=== PATIENT | female | born 1935 | race Caucasian/White ===

== ENCOUNTER 2017-08-24 14:41 | Inpatient (IN) | payer OTHER ==
[~2017-08-24] VITALS: Ht 165.1 cm; Wt 93.4 kg
--- NOTE | ~2017-08-24 | EKG ---
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: [facility] : 1935 Requested By: Atul Santos Order Number: [id number] MD: Bradley Rodriguez Measurements Intervals [place] Rate: 66 P: 65 [place]: 152 QRS: -23 QRSD: 103 T: 88 QT: 444 QTc: 466 Interpretive Statements Sinus rhythm Left ventricular hypertrophy Nonspecific T abnrm, anterolateral leads No previous ECG available for comparison Electronically Signed On 08-24-2017 17:36:33 CDT by Bradley Rodriguez [email or web address] <ELECTRONICALLY SIGNED> By: Bradley Rodriguez MD, [facility] 08/24/17 1736 D: 04/1502 150 Bradley Rodriguez MD, FACC /EPI
--- NOTE | ~2017-08-24 | 2DMMODE ---
[facility] [address] [place] [address] 2 D/M-MODE ECHOCARDIOGRAM Name: MARSELENAEnedeliaLORY Room #: 407-P ADM IN M.R.#: [id number] Admission: 08/24/17 Attend Phys: Yolanda Rossi Discharge: Date of : 35 Date of Service: 08/25/17 1042 Report #: [id number] THIS REPORT FOR: //name// APPROVED REPORT Study performed: 08/25/2017 09:29:29 EXAM: Comprehensive 2D, Doppler, and color-flow Echocardiogram Patient Location: Bedside Room #: 407 Status: routine BSA: 2.00 HR: 77 bpm BP: 156/76 mmHg Rhythm: NSR Other Information Study Quality: Fair Technically limited study due to no patient cooperation and obesity. Indications CVA. Hx: CVA, HTN, HLP, DM Echo Enhancing Agent Indication: Rule out Shunt Agent(s) / Amount(s) Used: Agitated Saline 6 cc 2D Dimensions LVEF(%): 69.09 (>50%) IVSd: 14.05 (7-11mm) LVOT Diam: 19.75 (18-24mm) LVDd: 48.02 mm PWd: 13.26 (7-11mm) LVDs: 29.38 (25-40mm) Aortic Root: 33.80 mm Riley's LVEF: 69.09 % Volumes Left Atrial Volume (Systole) Single Plane 4CH: 35.74 mL Aortic Valve AoV Peak Duc.: 2.32 m/s AO Peak Gr.: 21.56 mmHg LVOT Max P.97 mmHg AO Mean Gr.: 12.81 mmHg [facility] [email or web address] [address] 2 D/M-MODE ECHOCARDIOGRAM Name: ARLENELORY Room #: 407-P [facility] IN [facility]#: [id number] Admission: 08/24/17 Attend Phys: Yolanda Rossi Discharge: Date of : 35 Date of Service: 08/25/17 1042 Report #: [id number] AO V2 Mean: 1.72 m/s LVOT Max V: 1.41 m/s AO V2 VTI: 48.76 cm NIRMALA Vmax: 1.86 cm2 Mitral Valve E/A Ratio: 0.7 MV Decel. Time: 258.91 ms MV E Max Duc.: 0.81 m/s MV A Duc.: 1.14 m/s MV PHT: 75.08 ms IVRT: 69.20 ms Pulmonary Vein P Vein S: 0.75 m/s P Vein D: 0.46 m/s P Vein S/D Ratio: 1.63 Tricuspid Valve TR Peak Duc.: 2.57 m/s TR Peak Gr.: 26.48 mmHg Left Ventricle The left ventricle is normal size. Mild concentric left ventricular hypertrophy. Left ventricular systolic function is normal. LVEF is 60%. Mild diastolic dysfunction is present (impaired relaxation pattern). Right Ventricle The right ventricle is normal size. The right ventricular systolic function is normal. Atria The left atrium size is normal. No shunting noted by contrast bubble injection. The right atrium size is normal. Aortic Valve Aortic valve is calcified. Mild aortic regurgitation. There is mild valvular aortic stenosis. Calculated aortic valve area is 1.9 cm2 with maximum pressure gradient of 22 mmHg and mean pressure gradient of 13 mmHg. Mitral Valve The mitral valve is normal in structure. There is no mitral valve regurgitation noted. No evidence of mitral valve stenosis. Tricuspid Valve [facility] [address] [place] [address] 2 D/M-MODE ECHOCARDIOGRAM Name: LORY JACOBS Room #: 407-P [facility] IN M.R.#: [id number] Admission: 08/24/17 Attend Phys: Yolanda Rossi Discharge: Date of : 35 Date of Service: 08/25/17 1042 Report #: [id number] The tricuspid valve is normal in structure. Trace tricuspid regurgitation. Estimated PAP is 27mmHg plus the right atrial pressure. Pulmonic Valve Pulmonic valve is not well visualized. Great Vessels The aortic root is normal in size. Ascending aorta is not well visualized. IVC is not well visualized. Pericardium There is no pericardial effusion. <Conclusion> The left ventricle is normal size. LVEF is 60%. Aortic valve is calcified. Mild aortic regurgitation. There is mild valvular aortic stenosis. Calculated aortic valve area is 1.9 cm2 with maximum pressure gradient of 22 mmHg and mean pressure gradient of 13 mmHg. The mitral valve is normal in structure. The tricuspid valve is normal in structure. Trace tricuspid regurgitation. Estimated PAP is 27mmHg plus the right atrial pressure. Pulmonic valve is not well visualized. There is no pericardial effusion. No shunting noted by contrast bubble injection. <ELECTRONICALLY SIGNED> By: William Bowles MD 08/25/17 1042 104 104 William Bowles MD /INF
[2017-08-24 14:46] VITALS: BP 130/70
[2017-08-24 14:59] LABS: BASOPHILS 0.3 % (0.0-2.0); EOSINOPHILS 3.4 % (0.0-3.0); HEMATOCRIT 33.6 % (37.0-47.0); HEMOGLOBIN 11.2 gm/dL (12.0-15.0); LYMPHOCYTES 24.7 % (24.0-44.0); MCH 30.5 pg (26.0-34.0); MCHC 33.5 g/dL (28.0-37.0); MONOCYTES 5.4 % (1.0-8.0); PLATELET COUNT 292 thou/uL (150-400); POLYS 66.2 % (36.0-66.0); RBC 3.69 mil/uL (4.20-5.00); RDW 13.3 % (10.5-14.5); WBC 9.1 thou/uL (4.0-11.0)
[2017-08-24 15:06] LABS: ANION GAP 10 mmol/L (7-16); BUN 33 mg/dL (7-18); CALCIUM 9.8 mg/dL (8.5-10.1); CHLORIDE 104 mmol/L (98-107); CO2 26 mmol/L (21-32); CREATININE 1.3 mg/dL (0.6-1.0); GLUCOSE 159 mg/dL (74-106); POTASSIUM 4.5 mmol/L (3.5-5.1); SODIUM 140 mmol/L (136-145)
[2017-08-24 15:19] LABS: ALBUMIN 3.2 g/dL (3.4-5.0); SGOT 19 U/L (15-37); SGPT 22 U/L (30-65); TOTAL BILIRUBIN 0.3 mg/dL (<0.1-1.0); TROPONIN-I < 0.04 ng/mL (<0.06)
[2017-08-24 15:38] LABS: PROTIME 10.3 Seconds (9.3-11.4)
[2017-08-24 16:18] LABS: URINE BILIRUBIN NEGATIVE (Negative); URINE BLOOD 3+ (Negative); URINE CLARITY CLOUDY; URINE COLOR YELLOW; URINE GLUCOSE-RANDOM* NEGATIVE (Negative); URINE KETONES NEGATIVE (Negative); URINE LEUKOCYTES 3+ (Negative); URINE NITRITE POSITIVE (Negative); URINE PROTEIN (DIPSTICK) 1+ (Negative); URINE UROBILINOGEN 0.2 E.U./dl (0.2-1.0)
[2017-08-24 16:27] LABS: BACTERIA >30 Many /HPF (None Seen); CASTS None Seen /LPF (None Seen); CRYSTALS None Seen /LPF (None Seen); SQUAMOUS None Seen /LPF (0-3); URINE WBC >25 Many /HPF (0-5)
[2017-08-24 17:27] LABS: CHOLESTEROL 281 mg/dL (<200); HDL CHOLESTEROL 46 mg/dL (>40); TC:HDL 6.1 Ratio (Not establshd); TRIGLYCERIDE 410 mg/dL (<150); VLDL 82 mg/dL (<40)
[2017-08-24 17:36] LABS: SERUM ASSESSMENT Clear
[2017-08-24 17:55] LABS: TSH 4.051 uIU/mL (0.358-3.740)
[2017-08-24 18:10] VITALS: BP 108/49
[2017-08-24 18:14] VITALS: BP 165/55
[2017-08-24 21:24] VITALS: BP 160/75
[2017-08-25 04:00] VITALS: BP 194/72
[2017-08-25] MEDS ORDERED: CALCIUM 600 +1 EAC1 PO (04:16)
[2017-08-25] MEDS ORDERED: NORVASC5 MG PO (04:16)
[2017-08-25] MEDS ORDERED: PLAVIX 75 MG TA75 M1 PO (04:17)
[2017-08-25] MEDS ORDERED: LASIX 20 MG TAB20 MG PO (04:18)
[2017-08-25] MEDS ORDERED: SYNTHROID50 MCG PO (04:18)
[2017-08-25] MEDS ORDERED: LISINOPRIL20 MG PO (04:20)
[2017-08-25] MEDS ORDERED: ACCUNEB SO1.25 MG/1 INH (04:22)
[2017-08-25] MEDS ORDERED: CYCLOBENZAPRINE5 MG PO ×2 (04:23→04:24)
[2017-08-25] MEDS ORDERED: METFORMIN HCL500 MG PO (04:28)
[2017-08-25] MEDS ORDERED: DULERA 100 MCG/13 GM (04:29)
[2017-08-25] MEDS ORDERED: PEPCID20 MG PO (04:30)
[2017-08-25] MEDS ORDERED: I-VITE TABLET1 EACH PO (04:31)
[2017-08-25] MEDS ORDERED: NF (04:32)
[2017-08-25 04:35] VITALS: BP 176/86
[2017-08-25] MEDS ORDERED: TYLENOL325 MG PO (04:46)
[2017-08-25] MEDS ORDERED: ARTIFICIAL TEA1 EACH OP (04:55)
[2017-08-25 05:00] VITALS: BP 158/70
[2017-08-25] MEDS ORDERED: LOPERAMIDE2 MG PO (05:02)
[2017-08-25] MEDS ORDERED: MI ACID LIQUID355 ML PO (05:03)
[2017-08-25] MEDS ORDERED: MIRALAX17 GM PO (05:04)
[2017-08-25] MEDS ORDERED: MILK OF MA2400 MG/10 PO (05:04)
[2017-08-25] MEDS ORDERED: VENTOLIN HFA 1818 GM INH (05:05)
[2017-08-25] MEDS ORDERED: SENNA8.6 MG PO (05:05)
[2017-08-25 07:05] VITALS: BP 156/76
[2017-08-25 16:09] VITALS: BP 107/51
[2017-08-25 20:00] VITALS: BP 154/52
[2017-08-26 05:32] VITALS: BP 117/67
[2017-08-26 08:44] VITALS: BP 149/45
[2017-08-26 16:47] VITALS: BP 148/52
[2017-08-26 20:00] VITALS: BP 157/65
[2017-08-27 04:00] VITALS: BP 142/65
[2017-08-27] MEDS ORDERED: LIPITOR 20 MG T20 M1 PO (09:46)
[2017-08-27] MEDS ORDERED: CEFUROXIME500 MG PO (09:46)
[2017-08-27 10:40] VITALS: BP 132/67
== END 2017-08-27 12:45 | DRG 871 ==
LOC: ER 14:41 → EROBS 16:55 → 4N 16:55
PROVIDERS: Hospitalist; Physician Assistant
DX: A41.9 Sepsis, unspecified organism (principal); G93.41 Metabolic encephalopathy; N39.0 Urinary tract infection, site not specified; N17.9 Acute kidney failure, unspecified; B96.20 Unspecified Escherichia coli [E. coli] as the cause of diseases classified elsewhere; I10 Essential (primary) hypertension; E11.9 Type 2 diabetes mellitus without complications; L89.91 Pressure ulcer of unspecified site, stage 1; M17.12 Unilateral primary osteoarthritis, left knee; E78.00 Pure hypercholesterolemia, unspecified; F41.9 Anxiety disorder, unspecified; J45.909 Unspecified asthma, uncomplicated; Z86.73 Personal history of transient ischemic attack (TIA), and cerebral infarction without residual deficits; Z79.84 Long term (current) use of oral hypoglycemic drugs; Z79.51 Long term (current) use of inhaled steroids; Z79.899 Other long term (current) drug therapy
CPT/HCPCS: 10091

== ENCOUNTER 2017-09-11 15:08 | Inpatient (IN) | payer OTHER ==
[~2017-09-11] VITALS: Ht 160 cm; Wt 84.2 kg
--- NOTE | ~2017-09-11 | EKG ---
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: at : 1935 Requested By: Urbano Real Order Number: [id number] MD: Ozzie Ramirez Measurements Intervals [place] Rate: 73 P: 68 SC: 156 QRS: -17 QRSD: 100 T: 63 QT: 479 QTc: 528 Interpretive Statements Sinus rhythm Borderline left axis deviation Borderline T abnormalities, lateral leads Prolonged QT interval Compared to ECG 08/24/2017 15:03:06 T-wave abnormality now present Prolonged QT interval now present Left ventricular hypertrophy no longer present Electronically Signed On 09-11-2017 22:56:09 CDT by Ozzie Ramirez [email or web address] <ELECTRONICALLY SIGNED> By: Ozzie Ramirez MD 09/11/17 2256 170 170 Ozzie Ramirez MD /EPI
[~2017-09-11 15:08] MED LIST: ACCUNEB SO1.25 MG/1 INH; ARTIFICIAL TEA1 EACH OP; CALCIUM 600 +1 EAC1 PO; CEFUROXIME500 MG PO; CYCLOBENZAPRINE5 MG PO; DULERA 100 MCG/13 GM; I-VITE TABLET1 EACH PO; LASIX 20 MG TAB20 MG PO; LIPITOR 20 MG T20 M1 PO; LISINOPRIL20 MG PO; LOPERAMIDE2 MG PO; METFORMIN HCL500 MG PO; MI ACID LIQUID355 ML PO; MILK OF MA2400 MG/10 PO; MIRALAX17 GM PO; NF; NORVASC5 MG PO; PEPCID20 MG PO; PLAVIX 75 MG TA75 M1 PO; SENNA8.6 MG PO; SYNTHROID50 MCG PO; TYLENOL325 MG PO; VENTOLIN HFA 1818 GM INH
[2017-09-11 15:09] VITALS: BP 129/84
[2017-09-11 15:31] LABS: URINE BILIRUBIN NEGATIVE (Negative); URINE BLOOD TRACE (Negative); URINE CLARITY CLEAR; URINE COLOR YELLOW; URINE GLUCOSE-RANDOM* NEGATIVE (Negative); URINE KETONES NEGATIVE (Negative); URINE NITRITE-REFLEX NEGATIVE (Negative); URINE PROTEIN (DIPSTICK) NEGATIVE (Negative); URINE SPECIFIC GRAVITY <= 1.005 (1.005-1.035); URINE UROBILINOGEN 0.2 E.U./dl (0.2-1.0)
[2017-09-11 15:32] LABS: URINE LEUKOCYTES-REFLEX 1+ (Negative)
[2017-09-11 15:42] LABS: SQUAMOUS 4-10 Moderate /LPF (0-3); URINE RBC 0-2 Rare /HPF (0-2); URINE WBC-REFLEX 6-15 Few /HPF (0-5)
[2017-09-11 15:43] LABS: BACTERIA-REFLEX None Seen /HPF (None Seen); CRYSTALS None Seen /LPF (None Seen); HYALINE CASTS 4-10 Moderate /LPF (None Seen); YEAST-REFLEX Present (None Seen)
[2017-09-11 15:50] LABS: BE(vivo) -0.2 mmol/L (-2 to +3); HCO3 23.8 mmol/L (22.0-26.0); PCO2 36.9 mmHg (35.0-45.0); PO2 69.7 mmHg (80.0-100.0); pH 7.428 (7.360-7.450); sO2 94.5 % (92.0-98.0)
[2017-09-11 15:54] LABS: AMP/METHAMP Negative (Negative); BARBITURATES Negative (Negative); BENZODIAZEPINES Negative (Negative); COCAINE Negative (Negative); METHADONE Negative (Negative); OPIATES Negative (Negative); PCP Negative (Negative)
[2017-09-11 16:13] LABS: ANION GAP 12 mmol/L (7-16); BUN 19 mg/dL (7-18); CHLORIDE 102 mmol/L (98-107); CO2 21 mmol/L (21-32); GLUCOSE 178 mg/dL (74-106); POTASSIUM 4.3 mmol/L (3.5-5.1); SODIUM 135 mmol/L (136-145); TROPONIN-I < 0.04 ng/mL (<0.06)
[2017-09-11 16:45] LABS: ABSOLUTE NEUTROPHILS 8.1 thou/uL (1.4-8.2); BASOPHILS 0.4 % (0.0-2.0); EOSINOPHILS 1.4 % (0.0-3.0); HEMATOCRIT 32.4 % (37.0-47.0); HEMOGLOBIN 10.8 gm/dL (12.0-15.0); LYMPHOCYTES 19.5 % (24.0-44.0); MCH 30.2 pg (26.0-34.0); MCHC 33.2 g/dL (28.0-37.0); MCV 90.9 fL (80.0-100.0); MONOCYTES 6.9 % (1.0-8.0); PLATELET COUNT 403 thou/uL (150-400); POLYS 71.8 % (36.0-66.0); RBC 3.57 mil/uL (4.20-5.00); RDW 13.1 % (10.5-14.5); WBC 11.2 thou/uL (4.0-11.0)
[2017-09-11 19:12] VITALS: BP 133/55
[2017-09-11 19:39] VITALS: BP 127/51
[2017-09-11] MEDS ORDERED: LIORESAL 10 MG10 MG PO (19:54)
[2017-09-11 20:16] LABS: FOLIC ACID 9.4 ng/mL (8.6-58.9); TSH 2.154 uIU/mL (0.358-3.740)
[2017-09-11 20:50] VITALS: BP 116/77
[2017-09-12 00:05] VITALS: BP 130/69
[2017-09-12 04:01] VITALS: BP 113/68
[2017-09-12 04:16] LABS: HEMATOCRIT 29.9 % (37.0-47.0); MCH 30.1 pg (26.0-34.0); MCHC 33.5 g/dL (28.0-37.0); MCV 89.9 fL (80.0-100.0); RBC 3.33 mil/uL (4.20-5.00); RDW 13.2 % (10.5-14.5); WBC 10.4 thou/uL (4.0-11.0)
[2017-09-12 04:27] LABS: CALCIUM 9.4 mg/dL (8.5-10.1); CREATININE 0.9 mg/dL (0.6-1.0); MAGNESIUM 1.5 mg/dL (1.8-2.4); POTASSIUM 3.8 mmol/L (3.5-5.1)
[2017-09-12 07:12] VITALS: BP 114/62
[2017-09-12 19:40] VITALS: BP 126/71
[2017-09-13 04:09] VITALS: BP 125/63
[2017-09-13 05:25] LABS: HEMATOCRIT 30.1 % (37.0-47.0); HEMOGLOBIN 10.1 gm/dL (12.0-15.0); MCH 30.5 pg (26.0-34.0); MCHC 33.5 g/dL (28.0-37.0); RBC 3.31 mil/uL (4.20-5.00); RDW 12.9 % (10.5-14.5); WBC 9.9 thou/uL (4.0-11.0)
[2017-09-13 05:33] LABS: CALCIUM 9.3 mg/dL (8.5-10.1); CREATININE 0.8 mg/dL (0.6-1.0); MAGNESIUM 1.7 mg/dL (1.8-2.4); POTASSIUM 3.8 mmol/L (3.5-5.1)
[2017-09-13 07:45] VITALS: BP 102/57
[2017-09-13 19:25] VITALS: BP 121/61
[2017-09-14 05:47] VITALS: BP 122/66
[2017-09-14 05:49] LABS: CALCIUM 9.4 mg/dL (8.5-10.1); CREATININE 0.7 mg/dL (0.6-1.0); MAGNESIUM 1.6 mg/dL (1.8-2.4); POTASSIUM 3.6 mmol/L (3.5-5.1)
[2017-09-14 05:57] LABS: HEMATOCRIT 28.8 % (37.0-47.0); HEMOGLOBIN 9.8 gm/dL (12.0-15.0); MCH 30.1 pg (26.0-34.0); MCHC 33.8 g/dL (28.0-37.0); RBC 3.24 mil/uL (4.20-5.00); RDW 12.9 % (10.5-14.5); WBC 10.9 thou/uL (4.0-11.0)
[2017-09-14 09:30] VITALS: BP 158/66
[2017-09-14 11:44] VITALS: BP 136/70
[2017-09-14 15:33] LABS: APTT 35.8 Seconds (24.5-32.8); FIBRINOGEN 545.2 mg/dL (210-360); INR 1.1; PROTIME 11.7 Seconds (9.3-11.4)
[2017-09-14 16:05] VITALS: BP 158/66
[2017-09-14 19:16] VITALS: BP 124/71
[2017-09-15 03:45] VITALS: BP 105/64
[2017-09-15 06:26] LABS: CALCIUM 9.9 mg/dL (8.5-10.1); CREATININE 0.8 mg/dL (0.6-1.0); MAGNESIUM 1.7 mg/dL (1.8-2.4); POTASSIUM 3.5 mmol/L (3.5-5.1)
[2017-09-15 07:27] LABS: HEMATOCRIT 25.7 % (37.0-47.0); HEMOGLOBIN 8.8 gm/dL (12.0-15.0); MCH 30.4 pg (26.0-34.0); MCHC 34.2 g/dL (28.0-37.0); MCV 88.8 fL (80.0-100.0); RBC 2.89 mil/uL (4.20-5.00); RDW 13.2 % (10.5-14.5); WBC 7.5 thou/uL (4.0-11.0)
[2017-09-15 09:00] VITALS: BP 102/77
[2017-09-15 15:41] VITALS: BP 119/66
[2017-09-15 19:15] VITALS: BP 167/54
[2017-09-16 04:50] VITALS: BP 146/50
[2017-09-16 08:25] VITALS: BP 120/72
[2017-09-16 19:23] VITALS: BP 117/57
[2017-09-17 05:55] VITALS: BP 170/50
[2017-09-17 17:11] VITALS: BP 124/70
[2017-09-17 20:22] VITALS: BP 161/58
[2017-09-18 03:43] VITALS: BP 155/6
[2017-09-18 05:32] LABS: HEMATOCRIT 26.6 % (37.0-47.0); MCH 30.2 pg (26.0-34.0); MCV 88.9 fL (80.0-100.0); RBC 2.99 mil/uL (4.20-5.00); RDW 13.4 % (10.5-14.5); WBC 8.7 thou/uL (4.0-11.0)
[2017-09-18 05:42] LABS: CALCIUM 9.6 mg/dL (8.5-10.1); CREATININE 0.6 mg/dL (0.6-1.0); POTASSIUM 3.9 mmol/L (3.5-5.1)
[2017-09-18 07:36] VITALS: BP 153/61
[2017-09-18] MEDS ORDERED: CEFDINIR300 MG PO (09:00)
[2017-09-18] MEDS ORDERED: NOVOLOG100 UNIT/1 SUBQ (09:02)
[2017-09-18] MEDS ORDERED: DIFLUCAN200 MG PO (09:03)
[2017-09-18 11:10] LABS: ALBUMIN 2.2 g/dL (3.4-5.0); MAGNESIUM 1.5 mg/dL (1.8-2.4)
== END 2017-09-18 12:04 | DRG 689 ==
LOC: ER 15:08 → 4E 17:13 → EROBS 17:13 → 4E 19:39
PROVIDERS: Emergency Medicine; Hospitalist; Internal Medicine; Internal Medicine Geriatric Medicine; Psychiatry & Neurology Neurology
DX: N39.0 Urinary tract infection, site not specified (principal); G93.40 Encephalopathy, unspecified; I69.351 Hemiplegia and hemiparesis following cerebral infarction affecting right dominant side; E03.9 Hypothyroidism, unspecified; E11.9 Type 2 diabetes mellitus without complications; F41.9 Anxiety disorder, unspecified; J45.909 Unspecified asthma, uncomplicated; T42.8X5A Adverse effect of antiparkinsonism drugs and other central muscle-tone depressants, initial encounter; Y92.89 Other specified places as the place of occurrence of the external cause; Z79.84 Long term (current) use of oral hypoglycemic drugs; Z79.899 Other long term (current) drug therapy; Z91.011 Allergy to milk products
CPT/HCPCS: 10084

== ENCOUNTER 2017-10-13 03:23 | Inpatient (IN) | payer OTHER ==
[~2017-10-13] VITALS: Ht 165.1 cm; Wt 83.9 kg
[~2017-10-13 03:23] MED LIST changes: +CEFDINIR300 MG PO; +DIFLUCAN200 MG PO; +LIORESAL 10 MG10 MG PO; +NOVOLOG100 UNIT/1 SUBQ
[2017-10-13 03:24] VITALS: BP 101/54
[2017-10-13] MEDS ORDERED: FLORANEX TABLE1 EACH PO (04:15)
[2017-10-13] MEDS ORDERED: I-VITE TABLET1 EACH PO (04:18)
[2017-10-13 04:20] LABS: HEMATOCRIT 31.7 % (37.0-47.0); HEMOGLOBIN 10.5 gm/dL (12.0-15.0); MCH 28.9 pg (26.0-34.0); MCHC 33.3 g/dL (28.0-37.0); PLATELET COUNT 522 thou/uL (150-400); RBC 3.64 mil/uL (4.20-5.00); RDW 15.7 % (10.5-14.5); WBC 9.9 thou/uL (4.0-11.0)
[2017-10-13 04:21] LABS: URINE BLOOD NEGATIVE (Negative); URINE CLARITY CLOUDY; URINE COLOR BROWN; URINE GLUCOSE-RANDOM* NEGATIVE (Negative); URINE KETONES TRACE (Negative); URINE PROTEIN (DIPSTICK) 1+ (Negative); URINE SPECIFIC GRAVITY >= 1.030 (1.005-1.035); URINE UROBILINOGEN 0.2 E.U./dl (0.2-1.0)
[2017-10-13 04:23] LABS: ICTOTEST (BILI CONFIRMATORY) Negative (Negative); URINE BILIRUBIN NEGATIVE (Negative); URINE LEUKOCYTES-REFLEX 3+ (Negative); URINE NITRITE-REFLEX POSITIVE (Negative)
[2017-10-13 04:30] LABS: CALCIUM OXALATE 4-10 Moderate /LPF (None Seen); CASTS None Seen /LPF (None Seen); MUCUS 0-3 Light strn/LPF (None Seen); SQUAMOUS None Seen /LPF (0-3); TRANSITIONAL EPITHEL CELL 4-10 Moderate /LPF (None Seen); URINE WBC-REFLEX >25 Many /HPF (0-5); YEAST-REFLEX Present (None Seen)
[2017-10-13 04:31] LABS: BACTERIA-REFLEX >30 Many /HPF (None Seen); CRYSTALS None Seen /LPF (None Seen); URINE RBC 0-2 Rare /HPF (0-2)
[2017-10-13 04:32] LABS: CALCIUM 10.1 mg/dL (8.5-10.1)
[2017-10-13 04:37] LABS: ALBUMIN 2.2 g/dL (3.4-5.0); DIRECT BILIRUBIN 0.1 mg/dL (<0.1-0.3); MAGNESIUM 1.8 mg/dL (1.8-2.4); TOTAL BILIRUBIN 0.5 mg/dL (<0.1-1.0); TOTAL PROTEIN 7.4 g/dL (6.4-8.2)
[2017-10-13 04:54] VITALS: BP 101/54
[2017-10-13 04:54] LABS: ABSOLUTE NEUTROPHILS 5.3 thou/uL (1.4-8.2); LARGE PLATELETS OCCASIONAL; NUCLEATED RBCS 1 /100WBC; PROMYELOCYTES 1 %
[2017-10-13 08:11] VITALS: BP 142/40
[2017-10-13 17:43] VITALS: BP 116/62
[2017-10-13 20:00] VITALS: BP 124/41
[2017-10-14 04:30] VITALS: BP 127/47
[2017-10-14 04:40] LABS: CALCIUM 9.3 mg/dL (8.5-10.1); CREATININE 2.4 mg/dL (0.6-1.0)
[2017-10-14 07:05] VITALS: BP 145/51
[2017-10-14 11:25] LABS: HEMATOCRIT 27.6 % (37.0-47.0); HEMOGLOBIN 9.3 gm/dL (12.0-15.0); MCH 29.3 pg (26.0-34.0); MCHC 33.9 g/dL (28.0-37.0); MCV 86.6 fL (80.0-100.0); RBC 3.19 mil/uL (4.20-5.00); RDW 15.4 % (10.5-14.5); WBC 6.9 thou/uL (4.0-11.0)
[2017-10-14 16:10] VITALS: BP 151/65
[2017-10-14 20:44] VITALS: BP 145/57
[2017-10-15 04:44] VITALS: BP 135/53
[2017-10-15 05:04] LABS: HEMATOCRIT 26.3 % (37.0-47.0); HEMOGLOBIN 8.7 gm/dL (12.0-15.0); MCH 28.7 pg (26.0-34.0); MCHC 33.1 g/dL (28.0-37.0); MCV 86.7 fL (80.0-100.0); RBC 3.03 mil/uL (4.20-5.00); RDW 15.6 % (10.5-14.5); WBC 7.1 thou/uL (4.0-11.0)
[2017-10-15 05:24] LABS: CALCIUM 9.1 mg/dL (8.5-10.1); POTASSIUM 4.1 mmol/L (3.5-5.1); TOTAL BILIRUBIN 0.3 mg/dL (<0.1-1.0); TOTAL PROTEIN 6.1 g/dL (6.4-8.2)
[2017-10-15 09:03] VITALS: BP 130/57
[2017-10-15 17:49] VITALS: BP 145/79
[2017-10-15 20:00] VITALS: BP 164/67
[2017-10-16 04:32] VITALS: BP 170/56
[2017-10-16 05:16] LABS: HEMATOCRIT 26.2 % (37.0-47.0); HEMOGLOBIN 8.6 gm/dL (12.0-15.0); MCH 28.7 pg (26.0-34.0); MCV 86.9 fL (80.0-100.0); RBC 3.01 mil/uL (4.20-5.00); RDW 15.6 % (10.5-14.5); WBC 7.9 thou/uL (4.0-11.0)
[2017-10-16 05:27] LABS: CALCIUM 8.6 mg/dL (8.5-10.1); CREATININE 1.7 mg/dL (0.6-1.0); POTASSIUM 4.3 mmol/L (3.5-5.1)
[2017-10-16 08:00] VITALS: BP 170/60
[2017-10-16 13:23] VITALS: BP 165/63
[2017-10-16 17:31] VITALS: BP 152/52
[2017-10-16 20:00] VITALS: BP 166/56
[2017-10-17 04:30] VITALS: BP 152/52
[2017-10-17 05:27] LABS: CALCIUM 8.5 mg/dL (8.5-10.1); CREATININE 1.5 mg/dL (0.6-1.0)
[2017-10-17 05:28] LABS: HEMATOCRIT 24.2 % (37.0-47.0); HEMOGLOBIN 7.9 gm/dL (12.0-15.0); MCH 28.2 pg (26.0-34.0); MCHC 32.5 g/dL (28.0-37.0); MCV 86.9 fL (80.0-100.0); RBC 2.78 mil/uL (4.20-5.00); RDW 15.9 % (10.5-14.5)
[2017-10-17 15:00] VITALS: BP 156/62
[2017-10-17 19:40] VITALS: BP 157/55
[2017-10-18 04:33] VITALS: BP 175/74
[2017-10-18 07:15] VITALS: BP 164/72
[2017-10-18 08:38] LABS: CALCIUM 9.5 mg/dL (8.5-10.1); CREATININE 1.2 mg/dL (0.6-1.0); POTASSIUM 3.5 mmol/L (3.5-5.1)
[2017-10-18] MEDS ORDERED: VANCOMYCIN HCL10 GM PO (14:29)
[2017-10-18 16:40] VITALS: BP 174/98
== END 2017-10-18 18:45 | DRG 682 ==
LOC: ER 03:23 → EROBS 04:46 → 4E 04:46
PROVIDERS: Emergency Medicine; Hospitalist; Nurse Practitioner Family
DX: N17.9 Acute kidney failure, unspecified (principal); E43 Unspecified severe protein-calorie malnutrition; N39.0 Urinary tract infection, site not specified; I69.351 Hemiplegia and hemiparesis following cerebral infarction affecting right dominant side; E11.9 Type 2 diabetes mellitus without complications; F41.9 Anxiety disorder, unspecified; J45.909 Unspecified asthma, uncomplicated; I10 Essential (primary) hypertension; E78.5 Hyperlipidemia, unspecified; E03.9 Hypothyroidism, unspecified; N31.9 Neuromuscular dysfunction of bladder, unspecified; E86.0 Dehydration; B96.89 Other specified bacterial agents as the cause of diseases classified elsewhere; Z79.4 Long term (current) use of insulin; Z79.899 Other long term (current) drug therapy; Z91.011 Allergy to milk products; Z68.30 Body mass index [BMI] 30.0-30.9, adult
CPT/HCPCS: 10183

== ENCOUNTER 2019-04-12 10:12 | Inpatient (IN) | payer MEDICARE, OTHER ==
[~2019-04-12] VITALS: Ht 165.1 cm; Wt 63.5 kg
[~2019-04-12 10:12] MED LIST changes: +FLORANEX TABLE1 EACH PO; +VANCOMYCIN HCL10 GM PO
[2019-04-12] MEDS ORDERED: DUREZOL5 ML OPHTHALMIC (10:16)
[2019-04-12] MEDS ORDERED: ILEVRO1.7 ML OPHTHALMIC (10:18)
[2019-04-12] MEDS ORDERED: LASIX 40 MG TAB40 MG PO (10:19)
[2019-04-12] MEDS ORDERED: IPRAT-ALBUT 0.5-3 ML INH (10:20)
[2019-04-12] MEDS ORDERED: JANUVIA50 MG PO (10:21)
[2019-04-12 10:22] VITALS: BP 159/72
[2019-04-12] MEDS ORDERED: NYSTATIN1 EA10 TOP (10:22)
[2019-04-12] MEDS ORDERED: CLONIDINE HCL0.2 M2 PO (10:23)
[2019-04-12] MEDS ORDERED: MELATONIN5 MG SUBLING (10:25)
[2019-04-12 10:37] LABS: ABSOLUTE NEUTROPHILS 5.8 thou/uL (1.4-8.2); BASOPHILS 0.4 % (0.0-2.0); EOSINOPHILS 2.8 % (0.0-3.0); HEMOGLOBIN 11.2 gm/dL (12.0-15.0); LYMPHOCYTES 28.2 % (24.0-44.0); MCHC 33.1 g/dL (28.0-37.0); MCV 87.6 fL (80.0-100.0); MONOCYTES 5.6 % (1.0-8.0); PLATELET COUNT 303 thou/uL (150-400); RBC 3.88 mil/uL (4.20-5.00); RDW 14.7 % (10.5-14.5); WBC 9.2 thou/uL (4.0-11.0)
[2019-04-12 10:54] LABS: ANION GAP 6 mmol/L (7-16); BUN 18 mg/dL (7-18); CALCIUM 9.7 mg/dL (8.5-10.1); CHLORIDE 102 mmol/L (98-107); CO2 30 mmol/L (21-32); CREATININE 1.2 mg/dL (0.6-1.0); GLUCOSE 218 mg/dL (74-106); POTASSIUM 3.6 mmol/L (3.5-5.1); SODIUM 138 mmol/L (136-145)
[2019-04-12 11:05] LABS: SGOT 18 U/L (15-37); SGPT 32 U/L (30-65); TOTAL BILIRUBIN 0.4 mg/dL (<0.1-1.0); TOTAL PROTEIN 8.2 g/dL (6.4-8.2); TROPONIN-I <0.06 ng/mL (<0.06)
--- NOTE | 2019-04-12 13:10 | EKG ---
[address] [address] ELECTROCARDIOGRAM REPORT Name: CHARLY JACOBS Room #: 170-2 ADM IN M.R.#: [id number] Admission: 04/12/19 Attend Phys: Angel Luis Meyers MD Discharge: Date of : 35 Report #: [id number] THIS REPORT FOR: //name// 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: SHARONA : 1935 Requested By: Khadijah Hdz Order Number: [id number] MD: Ozzie Ramirez Measurements Intervals [place] Rate: 79 P: 57 [place]: 134 QRS: -14 QRSD: 91 T: 134 QT: 450 QTc: 517 Interpretive Statements Sinus rhythm LVH by voltage Nonspecific T abnrm, anterolateral leads Baseline wander in lead(s) V3 Compared to ECG 09/11/2017 17:01:55 Left ventricular hypertrophy now present T-wave abnormality no longer present Electronically Signed On 04-12-2019 13:10:38 [employer]PER[employer] by Ozzie Ramirez [email or web address] <ELECTRONICALLY SIGNED> By: Ozzie Ramirez MD 04/12/19 1310 1019 1019 Ozzie Ramirez MD /EPI
[2019-04-12 13:30] VITALS: BP 151/51
[2019-04-12 13:57] VITALS: BP 146/65
[2019-04-12 14:07] VITALS: BP 145/78
[2019-04-12 19:48] VITALS: BP 138/65
--- NOTE | 2019-04-12 20:41 | NUR ---
84 YEAR OLD FEMALE ARRIVES VIA CART TO UNIT AT APPROX 1430 FROM ER-REPORTED TO HAVE ARRIVED TO ER FROM INTERMEDIATE FACILITY-[facility] WITH RESPIRATORY DISTRESS-INCREASED WHEEZING AND DECREASING O2 SATS OVER COURSE OF PAST WEEK REPORTED WITH NO RESPONSE TO BREATHING TREATMENTS AT SNF. SPEAKS FARSI ONLY SO INTERPRETOR CALLED FOR ADMIT INTERVIEW-ORINETED TO PERSON AND SITUATION-DENIES C/O PAIN AND REPORTS BREATHING "GOOD NOW" NO SKIN BREAKSOWN NOTED ON EXAM-IS NOTED TO HAVE SIGNIFICANT RIGHT SIDED WEAKNESS AND REQUIRES ASSIST OF 2 TO TRANSFER TO/FROM BED TO /COMMODE. ORIENTED TO ROOM AND UNIT VIA INTERPRETOR-ADMIT PAPERWORK SIGNED-PERIPHERAL IV IN RIGHT HAND PATENT AND NS AT 75 EE PER HOUR STARTED AT APPROX 1545
--- NOTE | 2019-04-13 03:59 | NUR ---
Pt. rested quietly at intervals during the night when checked on during frequent rounds. Incontinent of urine and milady care given. Son at the bedside during bedside report and he assisted with assessment as pt. is not pashto speaking. She denies pain. Can become wheezy at times, but respiratory distress noted. On RT treatments and room air. Bed alarm is on.
[2019-04-13 05:45] LABS: ABSOLUTE NEUTROPHILS 6.7 thou/uL (1.4-8.2); BASOPHILS 0.3 % (0.0-2.0); EOSINOPHILS 0.2 % (0.0-3.0); HEMATOCRIT 33.5 % (37.0-47.0); HEMOGLOBIN 11.1 gm/dL (12.0-15.0); LYMPHOCYTES 15.9 % (24.0-44.0); MCH 29.1 pg (26.0-34.0); MCHC 33.1 g/dL (28.0-37.0); MCV 88.1 fL (80.0-100.0); MONOCYTES 0.6 % (1.0-8.0); PLATELET COUNT 305 thou/uL (150-400); RDW 15.1 % (10.5-14.5)
[2019-04-13 05:55] LABS: CALCIUM 9.3 mg/dL (8.5-10.1); CREATININE 1.3 mg/dL (0.6-1.0); MAGNESIUM 1.7 mg/dL (1.8-2.4); POTASSIUM 4.2 mmol/L (3.5-5.1)
[2019-04-13 08:15] VITALS: BP 151/76
[2019-04-13 12:18] VITALS: BP 142/70
[2019-04-13 19:32] VITALS: BP 170/76
--- NOTE | 2019-04-13 20:01 | NUR ---
Assumed pt care this am, NM lung scan VQ completed this am. POC followed pt is still incontinent. Speaks Farci only but is able to follow sign language and simple directions. Blood sugar checks done and insulin given. No signs or verbaizations of distress noted. Incontinent of urine, external emanuel in place. Endorsed to the night nurse.
--- NOTE | 2019-04-14 04:28 | NUR ---
Pt. rested quietly at intervals during the night when checked on during frequent rounds. External emanuel catheter in place as pt. is incontinent. Wheezes in both lung benjamin and RT treatments administered as ordered. No respiratory distress present and pt. is on room air. Head of the bed elevated. Bed alarm is on.
[2019-04-14 04:38] LABS: CREATININE 1.3 mg/dL (0.6-1.0); POTASSIUM 4.5 mmol/L (3.5-5.1)
[2019-04-14 04:56] LABS: HEMATOCRIT 30.8 % (37.0-47.0); HEMOGLOBIN 10.2 gm/dL (12.0-15.0); MCH 29.2 pg (26.0-34.0); MCV 88.6 fL (80.0-100.0); RBC 3.48 mil/uL (4.20-5.00); RDW 14.7 % (10.5-14.5); WBC 8.1 thou/uL (4.0-11.0)
[2019-04-14 08:00] VITALS: BP 168/70
--- NOTE | 2019-04-14 09:40 | NUR ---
PT SPEAKS FARSI/LITHUANIAN AND DOES NOT UNDERSTAND AUSTRIAN. PT'S SON STATED TO CALL HIM FOR ANY TRANSLATION NEEDS. PT STATED TO SON THAT SHE WAS HAVING ABD PAIN ABOVE THE UMBILICAL WHERE SHE HAS A HERNIA. PT WAS GIVEN PRN PO PAIN MEDICATION ORDERED. FREQUENT ROUNDING ON PT. WILL ATTEMPT TO USE RETAIL TRAINING MANAGER LINE FOR COMMUNICATION WELL.
[2019-04-14 15:00] VITALS: BP 151/65
--- NOTE | 2019-04-14 18:49 | NUR ---
Patient has called out appropriately this afternoon. She is able to communicate needs without voicing them. She points to water for a refill. She hands nurse call light and points at tv. Patient is progressing towards plan of care.
[2019-04-14 19:27] VITALS: BP 151/61
--- NOTE | 2019-04-15 03:28 | NUR ---
PT CARE ASSUMED AT 1900 WITH PT IN BED.PT IS NON GHANAIAN SPEAKING.PT IV GOT INFILTRATED AND WAS D/C .CHASITY TREJO CALLED AND OK WITH IV D/C AND FPR STEROID TO BE CHANGED TO PO SINCE PER PLAN PT IS TO GO BACK TO SNF.SON CAME TO VISIT AND FOLLOW UP PT CARE WITH STAFF.PT HAS AN EXTERNAL FEMALE CATHETER IN PLACE.PT HAD A LARGE BM TODAY .WILL CONTINUE POC TILL SHIFT ENDING
[2019-04-15 07:26] VITALS: BP 155/64
--- NOTE | 2019-04-15 12:22 | NUR ---
RECEIVED P.T. ORDERS. CHART REVIEWED. NO SKILLED P.T. INITIATED Pt IS CURRENTLY AT HER BASELINE PER HER SON AND HER SON DOESN'T WANT HER TO HAVE ANY P.T. HERE. ABBY AND RENEG AWARE.
[2019-04-15] MEDS ORDERED: MUCINEX600 MG PO (13:44)
[2019-04-15] MEDS ORDERED: NORVASC10 MG PO (13:44)
[2019-04-15] MEDS ORDERED: PREDNISONE 10 M10 M1 PO (13:45)
--- NOTE | 2019-04-15 13:53 | NUR ---
RECEIVED OT ORDER AND CHART REVIEWED. SPOKE WITH PATIENT'S SON WHO DECLINED ACUTE CARE OT HE WOULD HAVE TO BE PRESENT, RN AWARE.
--- NOTE | 2019-04-15 14:35 | NUR ---
DISCHARGE ORDERS COMPLETED PER ATTENDING. PATIENT DISCHARGING BACK TO [facility]. CHART COPY COMPLETED PER HUMAN RESOURCE INTERNSHIP. [facility] LIAISON NOTIFIED AND TO ARRANGE STRETCHER VAN TRANSPORT PER SONS REQUEST. PER UNIT RN SON REFUSES TO ALLOW PT AND OT TO WORK WITH PATIENT AND REFUSES TO ALLOW NURSING STAFF TO SIT PATIENT UP IN CHAIR. DISCHARGE ORDERS FAXED TO [facility], VERIFIED RECEIVED. UNIT RN NOTIFIED AND CONTACT NUMBER FOR REPORT PROVIDED. UNIT SW AWARE.
--- NOTE | 2019-04-15 14:56 | NUR ---
PT ADMITTED RELATED TO RESP DISTRESS. CM REVIEWED CHART AND SPOKE WITH CARE TEAM. CM MET WITH PT AND SON RAVI AT BEDSIDE THIS DAY. PT SPEAKS FARSI AND ANSWERED ALL HER ASSESSMENT QUESTIONS. HE INDICATED THAT PT RESIDES IN [facility]. 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 SON INDICATED THAT HE VISITS TWICE DAILY TO SEE PT. CARE TEAM INDIATED THAT PT IS MEDICALLY STABLE TO RETURN TO OP [facility]ENTER THIS DAY. CHART COPY ORDERED. CM TO NOTIFY SON ONCE TRANSPORT IS ARRANGED.
--- NOTE | 2019-04-15 16:07 | NUR ---
TRANSPORT WAS ARRANGED FOR 5:30-6:00 CM CALLED TO NOTIFY SON AND HE INDICATED THAT TOBIAS HARDIN WAS GOING TO DO A THYROID BIOPSY AND THAT DC NEEDED TO BE CANCLED. CM NOTIFIED OP CENTER LIAISON. CM TO FOLLOW INDICATED WITH DC PLANNING.
[2019-04-15 19:06] VITALS: BP 150/62
--- NOTE | 2019-04-15 19:54 | NUR ---
Assumed pt care this am, No IV in place , ws DC as per night nurse by PRESS CLIPPER since DC was anticipated. POC followed no signs or verbalizations of distress have been noted. Son was at the bed side in the pm. DC orders were given but taken back when Dr. Villegas visited the pt and plans are the do a biopsy of the thyroid. Ext. fc placed and draining well. IV placed by the IV team .POC followed no signs or verbalizations of distress have been noted.
--- NOTE | 2019-04-16 06:20 | NUR ---
Assumed pt care @1915. no concerns overnight. pt had a large BM at the start of the shift. female ext cath in place and patent. denies pain. v/s stable. no s/s of distress
[2019-04-16 08:00] VITALS: BP 165/76
[2019-04-16 15:00] VITALS: BP 153/65
--- NOTE | 2019-04-16 18:58 | NUR ---
REPORT GIVEN TO THIS RN BY NURSE GARCIA AT 1515HOURS. PATIENT IN BED WITH NO CONCERN VOICED. LUNGS DIMINISHED IN ALL LOBE PER AUSCULTATION. BS+X4, ABD SOFT NONE-TENDER TO TOUCH. PATIENT HAS RIGHT SIDED WEAKNES DUE TO CVA. BLOOD SUGAR BEFORE SUPPER WITH RESULT OF 241, INSULIN GIVEN PER ORDER. PATIENT IS ABLE TO FEED SELF, APPETITE GOOD, CONSUMED 100% SUPPER. EXTERNAL CATHERTER IN PLACE. PATIENT TAKEN TO RADIOLOGY FOR THYROID ULTRASOUND, HAS SINCE RETURNED. NO SIGN OF ACUTE RESPIRATORY DISTRESS NOTED AT THIS TIME, WILL CONTINUE TO MONITOR.
[2019-04-16 19:25] VITALS: BP 140/54
[2019-04-17 01:10] LABS: GLYCOHEMOGLOBIN (HGB A1C) 7.5 % (4.8-5.6)
--- NOTE | 2019-04-17 05:07 | NUR ---
Pt. rested quietly at intervals during the night when checked on during frequent rounds. Her previous iv site infiltrated when flushed. New iv restarted (see poc) without difficulty. No shortness of air and head of the bed elevated. External emanuel catheter in place. Bed alarm is on.
[2019-04-17 06:00] LABS: HEMOGLOBIN 11.2 gm/dL (12.0-15.0); MCH 29.2 pg (26.0-34.0); MCV 88.4 fL (80.0-100.0); RBC 3.84 mil/uL (4.20-5.00); RDW 14.9 % (10.5-14.5)
[2019-04-17 06:13] LABS: CALCIUM 8.9 mg/dL (8.5-10.1); CREATININE 1.3 mg/dL (0.6-1.0); POTASSIUM 4.6 mmol/L (3.5-5.1)
[2019-04-17 07:21] VITALS: BP 174/68
[2019-04-17 08:07] LABS: ADENOVIRUS Negative (Negative); INFLUENZA A Negative (Negative); INFLUENZA B Negative (Negative); METAPNEUMOVIRUS Negative (Negative); PARAINFLUENZA 1 Negative (Negative); PARAINFLUENZA 2 Negative (Negative); PARAINFLUENZA 3 Negative (Negative); RHINOVIRUS Negative (Negative); RSV A Negative (Negative); RSV B Negative (Negative)
--- NOTE | 2019-04-17 13:52 | HC ---
[facility] [place] [address] CONSULTATION Name: CHARLY JACOBS Room #: 456-P ADM IN M.R.#: [id number] Admission: 04/12/19 Attend Phys: Angel Luis Meyers MD Discharge: Date of : 35 Report #: [id number] THIS REPORT FOR: //name// CC: Angel Luis Meyers Homer Akkulugari DATE OF SERVICE: 04/16/2019 CONSULTING PHYSICIAN: Dr. Meyers. REASON FOR CONSULTATION: Goiter, hypothyroidism. HISTORY OF PRESENT ILLNESS: This is an 84-year-old female patient whose medical background is significant for multiple medical issues including hypothyroidism, type 2 diabetes mellitus and CVA with residual hemiparesis, who presented on 04/12 with complaint of progressive shortness of breath and cough. On arrival, the patient was felt to be in respiratory distress, and was admitted for further care and monitoring. From the course of her workup, the patient underwent imaging studies that incidentally pointed out to the presence of a goiter. The patient does not speak very much Kazakh as her primary language is Farsi, but explains that she has not had major issues with neck fullness, neck pain, compressive symptoms or voice changes. The patient's background is noted for hypothyroidism and she is maintained on a regimen of levothyroxine 50 mcg daily. Also, the patient is noted to have type 2 diabetes mellitus and is maintained on Januvia 50 mg daily with supposedly good control. REVIEW OF SYSTEMS: I could not obtain much in terms of her review of systems due to the language barrier. However, it appears that her symptoms over the past week have predominantly evolved around the theme of respiratory issues of shortness of breath and cough as per her chart review. PAST MEDICAL HISTORY: 1. Hypothyroidism. 2. Type 2 diabetes mellitus. 3. Hypertension. 4. Hyperlipidemia. 5. Anxiety. 6. Asthma. 7. Bladder dysfunction. 8. CVA with residual right-sided hemiparesis. 9. GERD. OUTPATIENT MEDICATIONS: Include Plavix 75 mg daily, levothyroxine 50 mcg daily, [facility] [address] [place] [address] [facility] Room #: 456-P ADM IN M.R.#: [id number] Admission: 04/12/19 Attend Phys: Angel Luis Meyers MD Discharge: Date of : 35 Report #: [id number] Dulera inhaler, Pepcid 20 mg b.i.d., Tylenol, MiraLax 17 grams p.r.n., senna daily, Ventolin inhaler as needed, Lasix 20 mg daily, Januvia 50 mg daily, clonidine 0.1 mg daily. ALLERGIES: MILK. FAMILY HISTORY: Noncontributory. SOCIAL HISTORY: Denies the use of tobacco, alcohol or illicit drugs. She resides at a shelter facility. PHYSICAL EXAMINATION: GENERAL: Pleasant female patient who is not in apparent pain or distress. VITAL SIGNS: Blood pressure is 165/76 mmHg, heart rate is 53 beats per minute, respirations 20 per minute, temperature 36.6 degrees Celsius. CONSTITUTIONAL: The patient is sitting upright in her bed, appears comfortable, not in apparent pain or distress. HEENT: Anicteric sclerae. Intact extraocular motions. NECK: Supple without JVD or carotid bruits. Her thyroid exam is noted for bilateral thyroid bed fullness, prominence over the left thyroid bed with an irregular texture, but nontender. No lymphadenopathy. CHEST: Noted for moderate air entry bilaterally with scattered rales, rhonchi and a few bilateral wheezes. HEART: Regular rate and rhythm without murmurs or gallops. ABDOMEN: Soft and lax without tenderness or organomegaly. She has active bowel sounds. EXTREMITIES: Lower extremity exam is noted for trace ankle edema. No skin breaks or ulcerations. NEUROLOGIC: Awake, alert, moves left upper and lower extremities spontaneously. Her right arm is contracted without spontaneous movement; she was holding it all the time. PSYCHIATRIC: Seems to have a normal mood and affect, unable to interact much and assess thought content due to the language barrier. LABORATORY RESULTS: Blood glucose values have been predominantly over 200 mg/dL, but have occasionally fluctuated in the mid to high 100 mg/dL range. Otherwise, sodium 138, potassium 4.5, chloride 104, CO2 of 25, anion gap 9, BUN 29, creatinine 1.3, glucose 247, AST 18, total bilirubin 0.4, calcium 9.0, magnesium 1.7, uric acid 8.6 that is old, alkaline phosphatase 132, albumin 3.0, GFR 39. White blood count 8.1, hemoglobin 10.2, hematocrit 30.8, platelets 283. An old TSH in September 2017 was at 2.157. IMAGING: Reviewing her radiology reports, a CT scan of the neck specifically, done on 04/12/2019 commented that the patient has a goiter, seemingly larger over the left thyroid lobe and with a leftward tracheal deviation. [facility] [address] [place] [address] CONSULTATION Name: CHARLY JACOBS Room #: 456-P ADM IN M.R.#: [id number] Admission: 04/12/19 Attend Phys: Angel Luis Meyers MD Discharge: Date of : 35 Report #: [id number] ASSESSMENT AND PLAN: 1. Goiter. As noted above, the patient was incidentally found to have a goiter on a neck CT scan imaging study done during this hospital stay. Her physical examination is also noted for a goiter. Subjectively and taken in mind the language barrier, the patient answered no to any associated compressive symptoms, pain or voice changes. My impression is that this goiter is not associated with a significant clinical outlook, which leads me to believe that this had probably evolved over a long period of time and is chronic in nature. However, in order to evaluate this with more accuracy, I will request a thyroid dedicated ultrasound study. Also, I will request thyroid function studies to ensure that her thyroid function tests are within normal limits with the current levothyroxine regimen. Following the thyroid ultrasound, it will be determined whether or not further evaluation is needed, whether it is with a nuclear study or with a needle biopsy if nodular lesions are identified. 2. Hypothyroidism. The patient has chronic hypothyroidism and is maintained on levothyroxine 50 mcg daily, and is currently being offered that during her hospital stay. I will check TSH and free T4 to assess the adequacy of this dosage. 3. Type 2 diabetes mellitus. The patient is maintained on Januvia monotherapy; I will attempt to develop an understanding for her level of control with a hemoglobin A1c. She is currently on a Humalog supplemental moderate scale, but has dealt with significant and persistent hyperglycemia over the past few days. This, undoubtedly, is further aided by the ongoing need for high dose IV glucocorticoid therapy. I would assume treatment with Tradjenta 5 mg daily and introduce Lantus 10 units daily for more sustained control. Blood glucose monitoring will continue a.c. and at bedtime, and further therapeutic changes will be made as necessary. 4. Hypertension. The patient's blood pressure has fluctuated over the past 48 hours. She is currently on treatment with Norvasc and hydralazine. Further therapeutic changes are per the hospital medicine team. I reviewed the patient's clinical care notes, laboratory data, imaging studies and other pertinent clinical information for over 35 minutes. I appreciate this consultation by Dr. Meyers. <ELECTRONICALLY SIGNED> By: Hermelinda Diaz MD 04/17/19 1352 1219 [id number] Hermelinda Diaz MD /nt
[2019-04-17 14:28] VITALS: BP 157/57
--- NOTE | 2019-04-17 16:38 | NUR ---
CARE TEAM INDICATED THAT PT IS MEDICALLY STABLE FOR DISCHARGE BACK TO LTC AT [facility] THIS EVENING. CHART COPY MADE. ORDERS FAXED. CM NOTIFIED PT'S SON OF DISCHARGE HE WOULD LIKE SOMEONE TO CALL WITH TIME OF TRANSPORT. REPORT TO BE CALLED TO . CM AWAITING LIAISON TO NOTIFY CM OF TIME OF PICKUP. CM WILL THEN NOTIFY UNIT AND SON. NO OTHER CM INTERVENTION INDICATED. CASE CLOSED.
--- NOTE | 2019-04-17 17:23 | NUR ---
Assumed pt care at 7am.Pt in bed for all meals.Good appetite.Pt unable to communicate in luxembourger but sign language in use.Notified pt son about procedure scheduled for 1400.He came and translate for pt.thyroid biopsy was completed in radiology and pt returned to unit in stable condition around 1530.Dr Meyers here,dc order noted.Pt will be dc later this evening to snf.No verbal c/o.Will continue to monitor.
[2019-04-17 19:20] VITALS: BP 165/62
--- NOTE | 2019-04-18 04:17 | NUR ---
Pt. rested quietly during the night when checked on during frequent rounds. No c/o pain. Female external catheter in place. No noted shortness of air and head of the bed elevated. Bed alarm is on.
[2019-04-18 08:26] VITALS: BP 152/68
--- NOTE | 2019-04-18 14:26 | NUR ---
ASSUMED CARE OF THE PT AT 0700. PT SPEAKS FARSI. PT TAKES MEDICATIONS WHOLE. PT IS AC & HS AND BS IS BEING CONTROLLED BY INSULIN, SEE EMAR AND SLIDING SCALE. PT HAS AN FEMALE EXTERNAL CATHETER AND IT IS INTACT AND WORKING. LUNG SOUNDS ARE CLEAR AND RADIAL, PEDAL PULSES ARE STRONG. PT IS A WALDO LIFT. PT HAS NO IV ACCESS. NO EDEMA ON HANDS OR FEET. PT IS RA AND NO C/O BREATHING. FALL PRECAUTIONS ARE IN PLACE, BED IS IN THE LOWEST POSITION AND CALL LIGHT IS WITHIN REACH. PT WILL BE DISCHARGING WITH TRANSPORTATION AT 5PM. WILL MONITOR PT UNTIL DISCHARGED.
--- NOTE | 2019-04-18 14:46 | NUR ---
PT IS TO DISCHARGE BACK TO OP CENTER THIS DAY. TRANSPORT IS SET UP FOR 1700. CM NOTIFIED PT'S SON RAVI. HE IS AWARE AND AGREEABLE. CHART COPY MADE. ORDERS FAXED. REPORT TO BE CALLED TO . NO OTHER CM INTERVENTION INDICATED CASE CLOSED.
[2019-04-18 16:05] VITALS: BP 169/63
--- NOTE | 2019-04-19 16:06 | PATH ---
[facility] [place] [address] PATHOLOGY RPT PROCEDURE Name: CHARLY JACOBS Room #: 456-P DIS IN M.R.#: [id number] Admission: 04/12/19 Date of : 35 Discharge: 04/18/19 Report #: [id number] Path Case #: [id number] Note [facility] Accession Number: [id number] TESTS RESULT FLAG UNITS REF RANGE LAB Clinician Provided Cytology Information No. of containers..01 Other (Miscellaneous) Source: 01 LT THYROID NODULE NE DIAGNOSIS: 02 LEFT THYROID NODULE, FINE NEEDLE ASPIRATION FOLLICULAR LESION OF UNDETERMINED SIGNIFICANCE. COLLOID IS PRESENT. RED BLOOD CELLS ARE PRESENT. THIS INTERPRETATION INCLUDES EVALUATION OF A CELL BLOCK. Comment: Examination shows abundant microfollicles and dense colloid. Watery colloid or macrophages are not identified. Nuclear features of papillary thyroid carcinoma are not identified. 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 The differential diagnosis includes an adenomatoid nodule. The RNA retain vial is sent for molecular analysis. The results of that report will be reported in an addendum to follow. Please note sample may not be entirely sales representative wire rope therefore correlate clinically and follow-up as indicated. Dr. Patrice Carreno has seen this case and concurs with my interpretation. Pathologist ICD10: 02 E04.1 Signed out by: Amanda Samano MD, Pathologist NPI- [id number] Performed by: Arabella Torre, Safety Associate ([facility]) Gross description: 05 29 ML, LT LIZZY, CLEAR /LCS 04/17/2019 1637 Local FLAG LEGEND: L-Low Normal,H-High Normal,LL-Alert Low,HH-Alert High <-Panic Low,>-Panic High,A-Abnormal,AA-Critical Abnormal Performed at: 01 [facility] [address] [place] [address] Cruz Huynh MD, 02 [facility] [address] [address] [facility] [address] [place] [address] PATHOLOGY RPT PROCEDURE Name: FLORACHARLY Room #: 456-P [facility] IN M.R.#: [id number] Admission: 04/12/19 Date of : 35 Discharge: 04/18/19 Report #: [id number] Path Case #: [id number] Amanda Samano MD, Specimen Comment: A courtesy copy of this report has been sent to [phone] Specimen Comment: [id number] Specimen Comment: Report sent to Performed at: 01 [facility] [address], [place], [place] [id number] MD Cruz Huynh MD Phone: [phone]
--- NOTE | 2019-04-22 15:27 | HC ---
[facility] [place] [address] CONSULTATION Name: CHARLY JACOBS Room #: 456-P [facility] IN M.R.#: [id number] Admission: 04/12/19 Attend Phys: Angel Luis Meyers MD Discharge: 04/18/19 Date of : 35 Report #: [id number] THIS REPORT FOR: //name// CC: Angel Luis Meyers Homer Pinokulugari DATE OF SERVICE: 04/15/2019 CONSULTING PHYSICIAN: Dr. Aleman. REASON FOR CONSULTATION: Umbilical hernia. ASSESSMENT: Ventral hernia. RECOMMENDATIONS: 1. Thank you for the consultation. I will follow along. 2. I will see the patient in followup as an outpatient for scheduling of elective ventral hernia repair when her lungs are improved. I would not recommend a ventral hernia repair currently given her pulmonary status. 3. Happy to reconsider timing of the procedure if medical teams prefer and the patient's pulmonary status improves. PAST MEDICAL HISTORY: 1. Cognitive impairment. 2. Diabetes mellitus. 3. Hypertension. 4. Hyperlipidemia. 5. Cerebrovascular accident with right hemiparesis. 6. Hypothyroidism. 7. 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 8. Ventral hernia. PAST SURGICAL HISTORY: Currently unobtainable. SOCIAL HISTORY: Resides in a shelter. No alcohol, tobacco or recreational drug use. FAMILY HISTORY: Denies coagulopathy or malignancy. REVIEW OF SYSTEMS: Unobtainable. PHYSICAL EXAMINATION: VITAL SIGNS: Temperature 36.6, pulse 56, respiratory rate 18, blood pressure 155/64, pulse ox 93% on room air. GENERAL: No apparent distress, alert and oriented x3. HEENT: JENI GARCÍA, DESIREE, NCAT [facility] [address] [place] [address] CONSULTATION Name: CHARLY JACOBS Room #: 456-P [facility] IN M.R.#: [id number] Admission: 04/12/19 Attend Phys: Angel Luis Meyers MD Discharge: 04/18/19 Date of : 35 Report #: [id number] NECK: Supple. No LAD CARDIOVASCULAR: Regular rhythm and rate. Hemodynamically stable. Normal capillary refill. PULMONARY: Nonlabored breathing, audible wheezing. ABDOMEN: Soft, nontender, morbidly obese. The patient does have a ventral hernia in the supraumbilical position that is large, nontender and reducible. No guarding, rebound or rigidity. EXTREMITIES: Calves soft, nontender, no edema. SKIN: No rashes or bruises. PSYCHIATRIC: Normal mood and affect Normal mood and affect NEUROLOGICAL: Grossly intact. CN II-XII grossly intact. MUSCULOSKELETAL: 5/5 strength in upper extremities and lower extremities bilaterally LYMPHATICS: No cervical, inguinal, or supraclavicular lymphadenopathy. LABORATORY DATA: White blood count 8.1, hemoglobin 10.2, hematocrit 30.8, platelets are 283. Sodium 138, potassium 4.5, chloride 104, bicarbonate 25, creatinine 1.3, glucose 247, calcium 9. <ELECTRONICALLY SIGNED> By: Valentín Aleman MD 04/22/19 1527 [id number] [id number] Valentín Aleman MD /nt
== END 2019-04-18 16:45 | DRG 202 ==
LOC: ER 10:12 → 4W 12:59 → EROBS 12:59 → 4W 13:44
PROVIDERS: Internal Medicine; Nurse Practitioner; Student in an Organized Health Care Education/Training Program; ADMIT Hospitalist
PROC: 0G9G3ZX Drainage of Left Thyroid Gland Lobe, Percutaneous Approach, Diagnostic (ICD-10-PCS; principal; 2019-04-17)
DX: J45.901 Unspecified asthma with (acute) exacerbation (principal); N17.9 Acute kidney failure, unspecified; E46 Unspecified protein-calorie malnutrition; I69.351 Hemiplegia and hemiparesis following cerebral infarction affecting right dominant side; E04.9 Nontoxic goiter, unspecified; E11.9 Type 2 diabetes mellitus without complications; I10 Essential (primary) hypertension; E03.9 Hypothyroidism, unspecified; F41.9 Anxiety disorder, unspecified; E78.5 Hyperlipidemia, unspecified; N31.9 Neuromuscular dysfunction of bladder, unspecified; K43.9 Ventral hernia without obstruction or gangrene; K21.9 Gastro-esophageal reflux disease without esophagitis; J45.909 Unspecified asthma, uncomplicated; Z91.011 Allergy to milk products; Z79.899 Other long term (current) drug therapy; J20.9 Acute bronchitis, unspecified
CPT/HCPCS: 10040

== ENCOUNTER 2020-03-13 15:43 | Inpatient (IN) | payer OTHER, MEDICARE ==
[~2020-03-13] VITALS: Ht 167.6 cm; Wt 101.7 kg
[~2020-03-13 15:43] MED LIST changes: +CLONIDINE HCL0.2 M2 PO; +DUREZOL5 ML OPHTHALMIC; +ILEVRO1.7 ML OPHTHALMIC; +IPRAT-ALBUT 0.5-3 ML INH; +JANUVIA50 MG PO; +LASIX 40 MG TAB40 MG PO; +MELATONIN5 MG SUBLING; +MUCINEX600 MG PO; +NORVASC10 MG PO; +NYSTATIN1 EA10 TOP; +PREDNISONE 10 M10 M1 PO
[2020-03-13 15:44] VITALS: BP 131/77
[2020-03-13 16:15] LABS: ABSOLUTE NEUTROPHILS 7.4 thou/uL (1.4-8.2); BASOPHILS 0.5 % (0.0-2.0); EOSINOPHILS 0.1 % (0.0-3.0); HEMOGLOBIN 14.3 gm/dL (12.0-15.0); LYMPHOCYTES 17.4 % (24.0-44.0); MCH 29.5 pg (26.0-34.0); MCHC 32.6 g/dL (28.0-37.0); MCV 90.5 fL (80.0-100.0); MONOCYTES 5.9 % (1.0-8.0); PLATELET COUNT 396 thou/uL (150-400); POLYS 76.1 % (36.0-66.0); RBC 4.87 mil/uL (4.20-5.00); RDW 16.1 % (10.5-14.5); WBC 9.8 thou/uL (4.0-11.0)
[2020-03-13 16:20] LABS: CALCIUM 9.7 mg/dL (8.5-10.1); CREATININE 1.9 mg/dL (0.6-1.0)
[2020-03-13 16:26] LABS: ALBUMIN 2.3 g/dL (3.4-5.0); TOTAL BILIRUBIN 0.5 mg/dL (0.2-1.0); TOTAL PROTEIN 7.8 g/dL (6.4-8.2)
[2020-03-13 17:03] LABS: BE(vivo) 4.2 mmol/L (-2 to +3); HCO3 29.6 mmol/L (22.0-26.0); PCO2 46.3 mmHg (35.0-45.0); PO2 196.3 mmHg (80.0-100.0); pH 7.423 (7.360-7.450); sO2 99.4 % (92.0-98.0)
--- NOTE | 2020-03-13 22:52 | NUR ---
VAT CONSULTED FOR A VAD. LINE PLACED PLEASE SEE NI FOR DETAILS
[2020-03-13 23:07] LABS: BE(vivo) -3.3 mmol/L (-2 to +3); HCO3 20.4 mmol/L (22.0-26.0); PCO2 32.8 mmHg (35.0-45.0); PO2 99.4 mmHg (80.0-100.0); pH 7.411 (7.360-7.450); sO2 97.6 % (92.0-98.0)
[2020-03-14] VITALS (34 sets, daily range): BP systolic 90–159; BP diastolic 41–136
[2020-03-14 01:26] LABS: URINE BILIRUBIN 1+ (Negative); URINE BLOOD 1+ (Negative); URINE CLARITY SL CLOUDY; URINE COLOR YELLOW; URINE GLUCOSE-RANDOM* NEGATIVE (Negative); URINE KETONES NEGATIVE (Negative); URINE LEUKOCYTES-REFLEX NEGATIVE (Negative); URINE NITRITE-REFLEX NEGATIVE (Negative); URINE PROTEIN (DIPSTICK) 3+ (Negative); URINE SPECIFIC GRAVITY >= 1.030 (1.005-1.035); URINE UROBILINOGEN 0.2 E.U./dl (0.2-1.0)
[2020-03-14 01:28] LABS: ICTOTEST (BILI CONFIRMATORY) Positive (Negative)
[2020-03-14 01:34] LABS: AMORPHOUS URATES Moderate /LPF (None Seen); BACTERIA-REFLEX 1-9 Few /HPF (None Seen); CRYSTALS None Seen /LPF (None Seen); FINE GRANULAR CASTS 0-3 Few /LPF (None Seen); MUCUS 4-6 Moderate strn/LPF (None Seen); SQUAMOUS 4-10 Moderate /LPF (0-3); TRANSITIONAL EPITHEL CELL 0-3 Few /LPF (None Seen); URINE RBC 0-2 Rare /HPF (0-2); URINE WBC-REFLEX None Seen /HPF (0-5)
[2020-03-14 04:14] LABS: CALCIUM 8.9 mg/dL (8.5-10.1); CREATININE 2.3 mg/dL (0.6-1.0); MAGNESIUM 2.5 mg/dL (1.8-2.4); POTASSIUM 4.5 mmol/L (3.5-5.1)
[2020-03-14 04:48] LABS: HEMOGLOBIN 12.5 gm/dL (12.0-15.0); MCH 28.9 pg (26.0-34.0); MCHC 31.3 g/dL (28.0-37.0); MCV 92.5 fL (80.0-100.0); RBC 4.32 mil/uL (4.20-5.00); RDW 16.1 % (10.5-14.5); WBC 9.5 thou/uL (4.0-11.0)
--- NOTE | 2020-03-14 05:43 | NUR ---
PATIENT ARRIVED FROM THE ER ON A VENT WITH PROPOFOL GOING. PATIENT SEEMS TO BE CALM AND NOT BUCKING THE VENT. PATIENT DOES OCCASSIONALY REACH FOR THE ETT AND HAS BEEN PLACED IN SOFT WRIST RESTRAINTS. PATIENT HAS A NONBLANCHABLE REDDENED BUTOCKS. PICTURES WERE TAKEN. PATIENT TURNED Q2H. WILL CONTINUE TO MONITOR.
--- NOTE | 2020-03-14 10:41 | HC ---
[facility] [place] [address] CONSULTATION Name: CHARLY JACOBS Room #: 238-P ADM IN M.R.#: [id number] Admission: 03/13/20 Attend Phys: Clyde Carlson MD Discharge: Date of : 35 Report #: [id number] THIS REPORT FOR: cc: Homer Sims MD, Shyam MD Barry, Joseph W. MD ~ DATE OF SERVICE: 03/14/2020 INFECTIOUS DISEASE CONSULTATION ATTENDING PHYSICIAN: Dr. Carlson. REASON FOR EVALUATION: COVID-19 complicated by pneumonitis, respiratory failure. HISTORY OF PRESENT ILLNESS: The patient was examined. This is an 85-year-old woman with a previous history of stroke, who was sent at the facility for which she states she was diagnosed with a positive COVID testing on 03/07/2020. She noted increasing dyspnea. The staff noted acute altered mental status, which prompted evaluation, transferred to the Emergency Room where she was noted to be hypoxemic, increasing requirements of oxygen including nonrebreather mask. Subsequently, she was intubated and is currently on FiO2 of 60% with a PEEP of 5. She is sedated with propofol, was found to be febrile to 101.3 as well. Evaluation noted fairly significant x-ray changes. She was initiated on broad-spectrum therapy with vancomycin as well as piperacillin and tazobactam. She was started on corticosteroids as well. ALLERGIES: None. MEDICATIONS: None. CURRENT MEDICATIONS: Include vancomycin, zinc, guaifenesin, amlodipine, atorvastatin, famotidine, clopidogrel, levothyroxine, ascorbic acid, thiamine and methylprednisolone. PAST MEDICAL HISTORY: As noted above, previous stroke. SOCIAL HISTORY: Nonsmoker. No ethanol. FAMILY HISTORY: Noncontributory. REVIEW OF SYSTEMS: Unobtainable. PHYSICAL EXAMINATION: [facility] [address] [place] [address] CONSULTATION Name: CHARLY JACOBS Room #: 238-P [facility]#: [id number] Admission: 03/13/20 Attend Phys: Clyde Carlson MD Discharge: Date of : 35 Report #: [id number] GENERAL: She is supine. She is sedated, nonresponsive at this point. She is maintained on ventilatory support via endotracheal tube. She has no G-tube in place. She has had some right sided neck vascular catheter in place as well. She appears somewhat chronically ill. VITAL SIGNS: Temperature this morning 98, T-max overnight of 101.3, pulse 94, respirations 13, blood pressure is 125/79. SKIN: Warm, dry, no rashes. HEENT: Normocephalic. Extraocular muscles intact. NECK: Supple. LUNGS: Diminished breath sounds. HEART: Distant, borderline tachycardic, regular. I do not appreciate a murmur. ABDOMEN: Mildly distended, soft, nontender. There are no overt peritoneal signs. GENITOURINARY AND RECTAL: Deferred. LABORATORY DATA: D-dimer elevated at 23.24. CBC: White count of 9.5, H and H 12.5 and 40.0, platelets of 298. Electrolytes: Sodium 151, potassium 4.5, chloride 114, bicarbonate is 23, anion gap of 14, BUN and creatinine 59 and 2.3, glucose of 320. Urinalysis, no white cells seen. ABGs: A pH of 7.411, pCO2 of 32.8, pO2 of 99.4, FiO2 of 60%. Procalcitonin 0.08. Chest x-ray, bilateral patchy pulmonary opacities, most prominent in the left lower and right upper lobe, suspected multifocal pneumonia. Lactic acid 1.5. ASSESSMENT AND PLAN: COVID-19 infection diagnosed several days ago based on positive testing. Apparently at least 2 weeks into the course this point, I do not know that remdesivir would be of help. In addition to that, she has some renal insufficiency with a creatinine of 2.3. We will continue broad-spectrum antimicrobial therapy, vitamins as well with the elevated D-dimer, certainly at risk for vascular complications as she is likely too unstable to undergo CT imaging of her chest. She is on heparin therapy. Overall, prognosis appears quite guarded. <ELECTRONICALLY SIGNED> By: Dino Sena MD 03/14/20 1041 [id number] [id number] Dino Sena MD /nt
[2020-03-14 11:20] LABS: BE(vivo) -3.3 mmol/L (-2 to +3); HCO3 20.3 mmol/L (22.0-26.0); PCO2 32.6 mmHg (35.0-45.0); PO2 113.6 mmHg (80.0-100.0); pH 7.412 (7.360-7.450); sO2 98.2 % (92.0-98.0)
--- NOTE | 2020-03-14 19:29 | NUR ---
SPOKE WITH PATIENT FAMILY AT 1600. SON NOTIFIED OF PT STATUS AND WISHED TO BE INFORMED AGIAN TOMORROW IF ANY CHANGES OCCOUR. 1600 DR ARRIAZA MADE AWARE OF URINE OUTPUT. NO NEW ORDERS AT THIS TIME. NUTIRITON PENDING
[2020-03-15] VITALS (77 sets, daily range): BP systolic 92–155; BP diastolic 38–111
[2020-03-15 04:54] LABS: HEMATOCRIT 32.7 % (37.0-47.0); MCH 29.2 pg (26.0-34.0); MCHC 32.2 g/dL (28.0-37.0); MCV 90.8 fL (80.0-100.0); RBC 3.61 mil/uL (4.20-5.00); RDW 15.5 % (10.5-14.5); WBC 7.5 thou/uL (4.0-11.0)
[2020-03-15 04:58] LABS: BE(vivo) -4.6 mmol/L (-2 to +3); HCO3 19.5 mmol/L (22.0-26.0); PCO2 32.8 mmHg (35.0-45.0); PO2 83.4 mmHg (80.0-100.0); pH 7.391 (7.360-7.450); sO2 96.3 % (92.0-98.0)
[2020-03-15 05:01] LABS: HEMOGLOBIN 10.5 gm/dL (12.0-15.0)
[2020-03-15 05:06] LABS: CALCIUM 8.2 mg/dL (8.5-10.1); MAGNESIUM 2.1 mg/dL (1.8-2.4); POTASSIUM 3.2 mmol/L (3.5-5.1)
--- NOTE | 2020-03-15 07:33 | NUR ---
VSS. SEDATED ON PROPOFOL GTT. AFEBRILE. 750 CC URINE OUT OVERNIGHT. RIDES VENT. VENT SETTINGS DID NOT CHANGE OVERNIGHT. PROGRESSING TOWARDS PLAN OF CARE.
--- NOTE | 2020-03-15 11:54 | NUR ---
PT POTASSIUM 3.2. DR. LEVIN AWARE. STARTED PT ON TUBE FEED.
[2020-03-16] VITALS (49 sets, daily range): BP systolic 107–151; BP diastolic 32–65
[2020-03-16 04:27] LABS: BE(vivo) -4.9 mmol/L (-2 to +3); HCO3 18.4 mmol/L (22.0-26.0); PO2 128.6 mmHg (80.0-100.0); sO2 98.7 % (92.0-98.0)
[2020-03-16 04:53] LABS: HEMATOCRIT 33.4 % (37.0-47.0); HEMOGLOBIN 11.3 gm/dL (12.0-15.0); MCH 30.3 pg (26.0-34.0); MCHC 33.7 g/dL (28.0-37.0); MCV 89.9 fL (80.0-100.0); PLATELET COUNT 257 thou/uL (150-400); RBC 3.72 mil/uL (4.20-5.00); RDW 15.3 % (10.5-14.5); WBC 8.5 thou/uL (4.0-11.0)
[2020-03-16 05:00] LABS: ALBUMIN 1.7 g/dL (3.4-5.0); CALCIUM 7.8 mg/dL (8.5-10.1); CREATININE 1.5 mg/dL (0.6-1.0); POTASSIUM 3.3 mmol/L (3.5-5.1); TOTAL BILIRUBIN 0.5 mg/dL (0.2-1.0); TOTAL PROTEIN 5.7 g/dL (6.4-8.2)
[2020-03-16 05:23] LABS: ABSOLUTE NEUTROPHILS 7.9 thou/uL (1.4-8.2); LARGE PLATELETS OCCASIONAL; NUCLEATED RBCS 1 /100WBC
--- NOTE | 2020-03-16 08:08 | NUR ---
PAtient progressing towards plan of care. Able to intermittently follow commands with sedation lightened, she has a strong cough and gag, afebrile, adequate urine output >30ml/hr. Plan of care is to continue monitoring patient vital signs and follow weaning protocol as ordered by physician.
--- NOTE | 2020-03-16 09:35 | NUR ---
Recommend change tube feed formula to vital high protein at 32ml/hr goal while on propofol. Defer water/fluid needs to physician
--- NOTE | 2020-03-16 09:43 | NUR ---
WOUND CONSULT; THE PATIENT TODAY WAS SITTING IN A CHAIR AND EATING A REGULAR DIET. YESTERDAY THE PATIENT WAS INTUBATED. THE PATIENTS CONDITION HAS MARKEDLY IMPROVE. THE RN REPORTS NO WOUNDS OR CONCERNS AND IT WAS OK TO D/C THE CONSULT.
--- NOTE | 2020-03-16 09:48 | NUR ---
WOUND CONSULT; THE PATIENT IS IN COVID RESTRICTIONS. THE ASSESSMENT WAS LIMITED TO THE PICTURES AND THE RN'S ASSESSMENT. THE AREAS OF THE BILATERAL BUTTOCKS AND SACRUM WERE SUSPICIOUS OF DEEP TISSUE INJURY WELL S/S OF FRICTION. RECOMMENDATIONS FOR NOW TO USE ZGUARD AND A SACRAL FOAM CHANGE M/W/F OR PRN RN PRESENT
--- NOTE | 2020-03-16 14:00 | NUR ---
Case opened to follow for support and dc planning. Pt is a [facility] care resident from [facility]. Her son Diego is her emergency contact and has been in touch with the ICU staff. The [facility] and sent in due to decreased oxygen levels and AMS. The pt has a history of a stroke and is non ambulatory. She is up to a w/c via a stding lift. Message left for admissions at the facility to confirm they are holding her bed and to request a copy of pt's dpoa/ad documents. Pt is a full code at this time. She is currently in the ICU on vent support. Will follow.
--- NOTE | 2020-03-16 15:06 | NUR ---
SEDATION VACATION FROM [id number]. PATIENT EXPERIENCED TACHYPNEA AND RESTLESSNESS SHORTLY AFTER SEDATION WAS TURNED OFF.
--- NOTE | 2020-03-16 15:57 | NUR ---
FAXED CLINICAL UPDATE TO [facility]ARE [facility] RECEIVED CONFIRMATION AND LEFT MSG WITH MAKENZIE IN ADM. DP TO FOLLOW.
[2020-03-17] VITALS (49 sets, daily range): BP systolic 110–170; BP diastolic 42–67
[2020-03-17 05:16] LABS: HEMATOCRIT 31.6 % (37.0-47.0); HEMOGLOBIN 10.4 gm/dL (12.0-15.0); MCH 29.6 pg (26.0-34.0); MCHC 32.9 g/dL (28.0-37.0); PLATELET COUNT 246 thou/uL (150-400); RBC 3.51 mil/uL (4.20-5.00); RDW 14.8 % (10.5-14.5); WBC 9.5 thou/uL (4.0-11.0)
[2020-03-17 05:19] LABS: FIBRINOGEN 255.4 mg/dL (210-360); PROTIME 10.5 Seconds (9.3-11.4)
[2020-03-17 05:34] LABS: ALBUMIN 1.8 g/dL (3.4-5.0); CALCIUM 8.5 mg/dL (8.5-10.1); CREATININE 1.4 mg/dL (0.6-1.0); POTASSIUM 3.6 mmol/L (3.5-5.1); TOTAL BILIRUBIN 0.4 mg/dL (0.2-1.0); TOTAL PROTEIN 5.4 g/dL (6.4-8.2)
--- NOTE | 2020-03-17 07:24 | NUR ---
VSS. SR ON MONITOR. TOLERATING CONTINOUS TF. NO BM THIS SHIFT. HAD FULL BATH AND LINEN CHANGE. URINE OUTPUT THIS SHIFT WAS 1300 CC. PT PROGRESSING IN PLAN OF CARE.
[2020-03-17 08:08] LABS: ABSOLUTE NEUTROPHILS 8.7 thou/uL (1.4-8.2); ANISOCYTOSIS SLIGHT; NUCLEATED RBCS 2 /100WBC; PLATELET ESTIMATE NORMAL
[2020-03-17 08:09] LABS: LARGE PLATELETS RARE
[2020-03-17 11:31] LABS: BE(vivo) -8.2 mmol/L (-2 to +3); PCO2 33.9 mmHg (35.0-45.0); PO2 90.2 mmHg (80.0-100.0); sO2 96.4 % (92.0-98.0)
[2020-03-17 11:33] LABS: pH 7.318 (7.360-7.450)
--- NOTE | 2020-03-17 18:43 | NUR ---
FAILED WEANING TRIAL WITH CRITICAL ABG. RECEIVED CONVALESCENT PLASMA TODAY. TUBE FEEDING INFUSING AT GOAL AND TOLERATING WELL. PROGRESSING TOWARD GOALS.
--- NOTE | 2020-03-17 22:44 | NUR ---
UPON ASSESSMENT, FOUND THAT PT'S OG TUBE WAS DISLODGED TO 45 CM AT LIP; TAPED TO ETT; HAD CONTINUOUS TUBE FEEDING IN OG TUBE. STOPPED CONTINUOUS TUBE FEEDING; REINSERTED OG TUBE TO 68 CM AT LIP; RETAPED OG TUBE TO ETT. ATTACHED OG TUBE TO LIS. WAITING ON CXR TO VERIFY PLACEMENT PRIOR TO RESTARTING CONTINUOUS TUBE FEED.
[2020-03-18] VITALS (45 sets, daily range): BP systolic 104–169; BP diastolic 46–71
[2020-03-18 10:12] LABS: ALBUMIN 1.7 g/dL (3.4-5.0); CREATININE 0.9 mg/dL (0.6-1.0); DIRECT BILIRUBIN 0.1 mg/dL (<0.1-0.2); TOTAL BILIRUBIN 0.3 mg/dL (0.2-1.0); TOTAL PROTEIN 5.3 g/dL (6.4-8.2)
--- NOTE | 2020-03-18 10:22 | NUR ---
WOUND CARE F/U; PT REMAINS IN COVID ISOLATION, DISCUSSED WOUND CARE W/ ASSIGNER ROYAL. STATES BUTTOCKS/SACRAL AREA IMPROVING FROM LAST PHOTO, PHOTO TO BE RETAKEN TODAY, FECAL MANAGEMENT SYSTEM IN PLACE, WILL CONT POC RECOMMENDATIONS; CONT CURRENT POC, ZGUARD, SACRAL FOAM DRSG DAILY AND PRN ASSIGNER AWARE
--- NOTE | 2020-03-18 14:49 | NUR ---
Spoke to son Diego today at 1430 for about 10 minutes, updated him on patient condition and plan of care. His questions were answered.
--- NOTE | 2020-03-18 18:36 | NUR ---
NO SIGNIFICANT CHANGES TODAY. VENT SETTINGS AC14/500/+5/.40. BLOOD TINGED INLINE SECRETIONS. SEDATED ON PROPOFOL. AFEBRILE. TOLERATING TUBE FEEDS.
[2020-03-19] VITALS (47 sets, daily range): BP systolic 101–174; BP diastolic 45–70
[2020-03-19 06:57] LABS: ALBUMIN 1.7 g/dL (3.4-5.0); DIRECT BILIRUBIN 0.1 mg/dL (<0.1-0.2); TOTAL BILIRUBIN 0.3 mg/dL (0.2-1.0); TOTAL PROTEIN 5.2 g/dL (6.4-8.2)
--- NOTE | 2020-03-19 19:30 | NUR ---
propofol off for about an hour this am. pupils equal and brisk, not following commands. pt coughs, bucks vent when suctioned. SB/SR, tolerating tube feeding, adequate urine output. no inquiry from family regarding pt status. report to Maria Ines, on coming rn.
[2020-03-20] VITALS (33 sets, daily range): BP systolic 100–162; BP diastolic 42–64
[2020-03-20 05:23] LABS: HEMATOCRIT 32.1 % (37.0-47.0); HEMOGLOBIN 10.4 gm/dL (12.0-15.0); MCH 29.2 pg (26.0-34.0); MCHC 32.4 g/dL (28.0-37.0); RBC 3.57 mil/uL (4.20-5.00); RDW 15.4 % (10.5-14.5)
[2020-03-20 05:38] LABS: CALCIUM 8.4 mg/dL (8.5-10.1); CREATININE 0.8 mg/dL (0.6-1.0); POTASSIUM 3.7 mmol/L (3.5-5.1)
[2020-03-20 05:41] LABS: ALBUMIN 1.6 g/dL (3.4-5.0); DIRECT BILIRUBIN 0.1 mg/dL (<0.1-0.2); TOTAL BILIRUBIN 0.3 mg/dL (0.2-1.0); TOTAL PROTEIN 4.9 g/dL (6.4-8.2)
--- NOTE | 2020-03-20 08:34 | NUR ---
BRAND COMMUNICATIONS MANAGER AWARE OF BLOODY SECRETIONS OUT OF ET TUBE. CONTACTED AT 0830.
--- NOTE | 2020-03-20 12:01 | NUR ---
chart review. she remains on vent with nutritional support. weaning trail. spoke with son nichol. active listen during phone call. no concerns or needs voiced. " i get updates from nurses and then i have to tell children and grandchild what is going on. thank you all"/nichol. will cont following as needed for dc needs.
[2020-03-20 16:34] LABS: BE(vivo) -4.9 mmol/L (-2 to +3); HCO3 18.9 mmol/L (22.0-26.0); PCO2 31.1 mmHg (35.0-45.0); PO2 71.3 mmHg (80.0-100.0); pH 7.401 (7.360-7.450); sO2 94.6 % (92.0-98.0)
[2020-03-21] VITALS (23 sets, daily range): BP systolic 114–152; BP diastolic 45–76
[2020-03-21 05:08] LABS: HEMATOCRIT 31.4 % (37.0-47.0); HEMOGLOBIN 9.9 gm/dL (12.0-15.0); MCH 28.7 pg (26.0-34.0); MCHC 31.5 g/dL (28.0-37.0); MCV 91.1 fL (80.0-100.0); RBC 3.44 mil/uL (4.20-5.00)
[2020-03-21 05:15] LABS: CALCIUM 7.7 mg/dL (8.5-10.1); CREATININE 0.9 mg/dL (0.6-1.0); POTASSIUM 4.1 mmol/L (3.5-5.1)
[2020-03-21 05:38] LABS: ALBUMIN 1.6 g/dL (3.4-5.0); DIRECT BILIRUBIN 0.1 mg/dL (<0.1-0.2); TOTAL BILIRUBIN 0.3 mg/dL (0.2-1.0); TOTAL PROTEIN 4.8 g/dL (6.4-8.2)
--- NOTE | 2020-03-21 07:52 | NUR ---
NO SV DUE TO NOT TOLERATING DURING THE DAY SHIFT, TOLERATING MINIMAL SEDATION FOR SHIFT, HR 41-59, BP STABLE.
--- NOTE | 2020-03-21 09:21 | NUR ---
ASSESSMENTS AND INTERVENTIONS DOCCUMENTED. PATIENT HAVING BRIGHT RED BLEEDING FROM IN LINE SUCTIONING. DR. MCDOWELL AT BEDSIDE. RN SHOWING HER CANISTER FILLED WITH BLOOD AND TELLING HER THAT THE PATIENT'S ABD IS DISTENDED. RN WAITING ON ORDERS.
--- NOTE | 2020-03-21 20:00 | NUR ---
CALL TO DR. BRUMFIELD WITH [facility] RESULTS, TO SEE IF HE WANTS TF RESTARTED OR TO ADD BOWEL REGIMEN. ORDERS TO CONT TO HOLD TF AND DEFERRED BOWEL REGIMEN TO HOSPITALIST. CALL TO CHASITY NAZARIO FOR ORDERS. ORDERS RECIEVED FOR SENNA/DOCUSATE AND MIRALAX.
--- NOTE | 2020-03-21 21:00 | NUR ---
SEDATION TURNED DOWN FOR PARTIAL SV, PT BEGAN STACKING BREATHS ON VENT, DOES NOT OPEN EYES OR FOLLOW COMMANDS, BUT CAN SEE PT ATTEMPTING TO BLINK AND MAYBE OPEN EYES - SCLEREDEMA MAY BE PREVENTING. SEDATION TURNED BACK UP AFTER 10 MINUTES TO CALM PT DOWN.
[2020-03-22] VITALS (25 sets, daily range): BP systolic 116–174; BP diastolic 45–67
[2020-03-22 05:07] LABS: HEMOGLOBIN 10.2 gm/dL (12.0-15.0); MCHC 31.7 g/dL (28.0-37.0); MCV 91.3 fL (80.0-100.0); RBC 3.51 mil/uL (4.20-5.00); RDW 15.6 % (10.5-14.5); WBC 13.8 thou/uL (4.0-11.0)
[2020-03-22 06:15] LABS: CALCIUM 8.4 mg/dL (8.5-10.1); POTASSIUM 3.9 mmol/L (3.5-5.1)
[2020-03-22 11:58] LABS: ALBUMIN 1.7 g/dL (3.4-5.0); DIRECT BILIRUBIN 0.2 mg/dL (<0.1-0.2); TOTAL BILIRUBIN 0.3 mg/dL (0.2-1.0); TOTAL PROTEIN 4.7 g/dL (6.4-8.2)
--- NOTE | 2020-03-22 18:56 | NUR ---
ASSESSMENTS AND INTERVENTIONS DOCCUMENTED. NO MAJOR CHANGES THIS SHIFT. PATIENT STILL HAVIN BLOOD TINGED SPUTUM OUT OF IN LINE. DR. BRUMFIELD AWARE. PATIENT NOT PROGRESSING TOWARDS GOALS AT THIS TIME EVIDENCE BY STILL NO BEING ABLE TO TOLERATE CPAP TRIALS.
[2020-03-23] VITALS (25 sets, daily range): BP systolic 125–168; BP diastolic 47–76
[2020-03-23 06:03] LABS: HEMATOCRIT 28.9 % (37.0-47.0); HEMOGLOBIN 9.3 gm/dL (12.0-15.0); MCHC 32.1 g/dL (28.0-37.0); MCV 90.4 fL (80.0-100.0); RBC 3.2 mil/uL (4.20-5.00); RDW 16.6 % (10.5-14.5); WBC 12.5 thou/uL (4.0-11.0)
[2020-03-23 06:09] LABS: CALCIUM 8.2 mg/dL (8.5-10.1); POTASSIUM 3.6 mmol/L (3.5-5.1)
--- NOTE | 2020-03-23 06:43 | NUR ---
VSS. SR/SB ON MONITOR. 1650 CC OUT IN URINE. SEDATED ON VERSED AND FENTANYL GTTS. APPEARS COMFORTABLE.
[2020-03-23 09:02] LABS: BE(vivo) -5.4 mmol/L (-2 to +3); HCO3 19.7 mmol/L (22.0-26.0); PO2 76.3 mmHg (80.0-100.0); pH 7.344 (7.360-7.450); sO2 94.7 % (92.0-98.0)
[2020-03-23 11:45] LABS: ALBUMIN 1.8 g/dL (3.4-5.0); DIRECT BILIRUBIN 0.1 mg/dL (<0.1-0.2); TOTAL BILIRUBIN 0.3 mg/dL (0.2-1.0); TOTAL PROTEIN 4.5 g/dL (6.4-8.2)
--- NOTE | 2020-03-23 12:06 | NUR ---
Since propofol discontinued, recommend new goal rate of tube feed of vital high protein at 55ml/hr. Recommend change reglan to scheduled instead of PRN. Pt has also had large wt gains-recommend discontinue ordered IVF of 125ml/hr and start water flushes per physician discretion.
--- NOTE | 2020-03-23 14:29 | NUR ---
SPOKE WITH PATIENT'S SON AT 1200 AND HE WAS UPDATED AND EDUCATED ON PATIENT CONDITION AND PLAN OF CARE.
[2020-03-24] VITALS (24 sets, daily range): BP systolic 115–165; BP diastolic 47–70
[2020-03-24 05:35] LABS: ALBUMIN 1.8 g/dL (3.4-5.0); DIRECT BILIRUBIN 0.2 mg/dL (<0.1-0.2); TOTAL BILIRUBIN 0.3 mg/dL (0.2-1.0); TOTAL PROTEIN 4.9 g/dL (6.4-8.2)
--- NOTE | 2020-03-24 07:59 | NUR ---
NO SIGNIFICANT EVENT OVER NIGHT. SEDATED WITH VERSED AND FENTANYL DRIPS FOR VENT MANAGEMENT. AFEBRILE. TOLERATING TF WELL. NO RESIDUALS. ADEQAUTE UO VIA [place]. GIVEN LASIX AND ALBUMIN THIS MORNING PER ORDER FROM DR COLLADO. PROGRESSING SLOWLY TOWARD POC GOALS. REPORT GIVEN TO ONCOMING NURSE.
--- NOTE | 2020-03-24 11:48 | NUR ---
chart review. covid +. she remains on vent, and nutritional support. updated to be sent to [facility] [place]. spoke with son nichol, no question on concerns voice. will cont following as needed for dc needs.
--- NOTE | 2020-03-24 16:26 | NUR ---
FAXED CLINICAL UPDATE TO [facility] SPOKE WITH MAKENZIE IN ADM SHE RECEIVED UPDATE. DP TO FOLLOW.
--- NOTE | 2020-03-24 18:37 | NUR ---
ASSUMED CARE @ 0700 03/24/20, PT ASSESSMENTS AND VSS COMPLETE PER ICU PROTOCOL. PT HAD AN UNEVENTFUL DAY, WILL CONT TO MONITOR.
[2020-03-25] VITALS (24 sets, daily range): BP systolic 110–170; BP diastolic 41–63
[2020-03-25 04:51] LABS: BE(vivo) -3.6 mmol/L (-2 to +3); HCO3 20.5 mmol/L (22.0-26.0); PCO2 33.9 mmHg (35.0-45.0); PO2 74.4 mmHg (80.0-100.0); sO2 95.1 % (92.0-98.0)
[2020-03-25 05:22] LABS: ALBUMIN 2.1 g/dL (3.4-5.0); CALCIUM 8.5 mg/dL (8.5-10.1); DIRECT BILIRUBIN 0.2 mg/dL (<0.1-0.2); PHOSPHORUS 3.5 mg/dL (2.5-4.9); POTASSIUM 3.3 mmol/L (3.5-5.1); TOTAL BILIRUBIN 0.4 mg/dL (0.2-1.0)
--- NOTE | 2020-03-25 10:04 | NUR ---
WOUND CARE F/U; ASSESSSMENT OF THE BUTTOCKS/SACRUM OVERALL SHOWS IMPROVEMENT ALTHOUGH THERE IS A NEW SKIN TEAR INJURY TODAY. APPROX 1.5 X 3.0 X 0.1 THE BARRIER CREAM REMAINS APPROPRIATE AND ADDITIONALLY I AM ADDING A SACRAL FOAM TO BE CHANGED M/W/F PRN DISCUSSED WITH RN.
--- NOTE | 2020-03-25 18:03 | NUR ---
SEDATION VACATION PERFORMED TODAY FROM AND TOLERATED WELL BY PATIENT. SON OF PATIENT MADE CONTACT AND WAS EDUCATED AND UPDATED ON PLAN OF CARE AND PATIENT CONDITION.
[2020-03-26] VITALS (28 sets, daily range): BP systolic 108–182; BP diastolic 41–85
[2020-03-26 07:34] LABS: ALBUMIN 1.5 g/dL (3.4-5.0); CALCIUM 8.3 mg/dL (8.5-10.1); CREATININE 0.9 mg/dL (0.6-1.0); DIRECT BILIRUBIN 0.1 mg/dL (<0.1-0.2); POTASSIUM 3.6 mmol/L (3.5-5.1); TOTAL BILIRUBIN 0.3 mg/dL (0.2-1.0); TOTAL PROTEIN 3.8 g/dL (6.4-8.2)
[2020-03-26 07:49] LABS: BE(vivo) -4.8 mmol/L (-2 to +3); HCO3 19.5 mmol/L (22.0-26.0); PCO2 32.9 mmHg (35.0-45.0); PO2 84.2 mmHg (80.0-100.0); pH 7.391 (7.360-7.450); sO2 96.4 % (92.0-98.0)
[2020-03-26 10:16] LABS: HEMATOCRIT 21.4 % (37.0-47.0)
--- NOTE | 2020-03-26 14:45 | NUR ---
1545: SON RAVI COTE CALLED FOR AN UPDATE, CODE VERIFIED AND UPDATE GIVEN. DURING PHONE CALL, HE GETS A DR WREN ON THE PHONE TO ANSWER QUESTIONS, I ANSWERED GENERAL QUESTIONS AND COMMUNICATED THAT I WOULD COMMUNICATE TO DR LEVIN TO GIVE HIM A CALL FOR A MORE DETAILED UPDATE.
[2020-03-26 20:18] LABS: HEMATOCRIT 30.7 % (37.0-47.0); HEMOGLOBIN 10.2 gm/dL (12.0-15.0)
[2020-03-27] VITALS (21 sets, daily range): BP systolic 132–191; BP diastolic 42–74
[2020-03-27 04:12] LABS: BE(vivo) -2.3 mmol/L (-2 to +3); HCO3 21.6 mmol/L (22.0-26.0); PCO2 33.9 mmHg (35.0-45.0); PO2 72.8 mmHg (80.0-100.0); pH 7.423 (7.360-7.450); sO2 95.1 % (92.0-98.0)
[2020-03-27 05:52] LABS: HEMATOCRIT 29.9 % (37.0-47.0); MCH 30.1 pg (26.0-34.0); MCHC 33.6 g/dL (28.0-37.0); MCV 89.6 fL (80.0-100.0); PLATELET COUNT 178 thou/uL (150-400); RBC 3.33 mil/uL (4.20-5.00); RDW 16.7 % (10.5-14.5); WBC 16.2 thou/uL (4.0-11.0)
[2020-03-27 06:44] LABS: ALBUMIN 2.4 g/dL (3.4-5.0); CALCIUM 8.7 mg/dL (8.5-10.1); CREATININE 0.8 mg/dL (0.6-1.0); POTASSIUM 3.5 mmol/L (3.5-5.1); TOTAL BILIRUBIN 0.5 mg/dL (0.2-1.0); TOTAL PROTEIN 4.8 g/dL (6.4-8.2)
[2020-03-27 08:09] LABS: ABSOLUTE NEUTROPHILS 14.3 thou/uL (1.4-8.2); ANISOCYTOSIS SLIGHT; POIKILOCYTOSIS SLIGHT
--- NOTE | 2020-03-27 10:13 | NUR ---
chart review. cm team update to op centers. she remains on vent, nutritional support. bedside staff provides updates to son nichol. will cont following as needed for dc needs.
--- NOTE | 2020-03-27 10:31 | NUR ---
WOUND CARE F/U; THE WOUND TO THE BUTTOCKS AND SACRUM IS CLINICALLY BETTER. NO CHANGES ARE NECCESSARY. WE WILL CONTINUE WITH ZGUARD COVERED WITH A SACRAL FOAM, M/W/F PRN.
[2020-03-28] VITALS (27 sets, daily range): BP systolic 150–190; BP diastolic 49–84
--- NOTE | 2020-03-28 18:23 | NUR ---
ASSUMED CARE AT 0700. SPOKE WITH PATIENT'S SON AROUND 1200 AND HE WAS UPDATED AND EDUCATED ON PATIENT CONDITION AND PLAN OF CARE. PATIENT PROGRESSING TOWARDS THE PLAN OF CARE. PATIENT WAS ON CPAP TRIAL FOR APPROXIMATELY 5 HOURS WHICH WAS TOLERATED WELL EVIDENCED BY OXYGEN SATURATIONS >95% AND NO TACHYPNEA.
[2020-03-29] VITALS (25 sets, daily range): BP systolic 148–206; BP diastolic 46–121
[2020-03-29 04:27] LABS: BE(vivo) -1.6 mmol/L (-2 to +3); HCO3 21.9 mmol/L (22.0-26.0); PCO2 32.6 mmHg (35.0-45.0); PO2 80.1 mmHg (80.0-100.0); pH 7.445 (7.360-7.450); sO2 96.4 % (92.0-98.0)
[2020-03-29 04:34] LABS: BASOPHILS 0.2 % (0.0-2.0); HEMATOCRIT 27.8 % (37.0-47.0); HEMOGLOBIN 9.4 gm/dL (12.0-15.0); MCH 30.4 pg (26.0-34.0); MCHC 33.6 g/dL (28.0-37.0); MCV 90.4 fL (80.0-100.0); MONOCYTES 3.5 % (1.0-8.0); PLATELET COUNT 141 thou/uL (150-400); POLYS 90.3 % (36.0-66.0); RBC 3.08 mil/uL (4.20-5.00); RDW 17.5 % (10.5-14.5); WBC 12.2 thou/uL (4.0-11.0)
[2020-03-29 04:53] LABS: ALBUMIN 2.3 g/dL (3.4-5.0); CREATININE 0.9 mg/dL (0.6-1.0); POTASSIUM 3.8 mmol/L (3.5-5.1); TOTAL BILIRUBIN 0.6 mg/dL (0.2-1.0); TOTAL PROTEIN 4.9 g/dL (6.4-8.2)
--- NOTE | 2020-03-29 07:27 | NUR ---
PATIENT HAD A GOOD NIGHT. PATIENT IS VERY EDEMATOUS. PATIENT'S SKIN IS WEEPIN WITH SEROUS FLUID. PATIENT IS MUCH MORE ALERT AND CAN TRACK WITH HER EYES. PATIENT MOVES HER LEFT ARM SPONTANEOUSLY.
--- NOTE | 2020-03-29 18:48 | NUR ---
ASSESSMENT DOCUMENTED. BP REMAINS HIGH MEDICATED INDICATED. PATIENT SON WAS UPDATED WITH HER CONDITION TODAY. AND WILL CONTINUE WITH POC.
[2020-03-30] VITALS (26 sets, daily range): BP systolic 159–208; BP diastolic 52–111
[2020-03-30 04:15] LABS: ABSOLUTE NEUTROPHILS 9.7 thou/uL (1.4-8.2); BASOPHILS 0.1 % (0.0-2.0); HEMATOCRIT 25.3 % (37.0-47.0); HEMOGLOBIN 8.4 gm/dL (12.0-15.0); LYMPHOCYTES 5.4 % (24.0-44.0); MCH 30.4 pg (26.0-34.0); MCHC 33.2 g/dL (28.0-37.0); MCV 91.7 fL (80.0-100.0); MONOCYTES 3.7 % (1.0-8.0); PLATELET COUNT 108 thou/uL (150-400); POLYS 90.8 % (36.0-66.0); RBC 2.76 mil/uL (4.20-5.00); RDW 17.7 % (10.5-14.5); WBC 10.7 thou/uL (4.0-11.0)
[2020-03-30 04:28] LABS: ALBUMIN 2.7 g/dL (3.4-5.0); CALCIUM 9.1 mg/dL (8.5-10.1); CREATININE 0.9 mg/dL (0.6-1.0); POTASSIUM 3.4 mmol/L (3.5-5.1); TOTAL BILIRUBIN 0.9 mg/dL (0.2-1.0)
--- NOTE | 2020-03-30 09:03 | NUR ---
Pt with several days of no nutrition support. Continue to recommend TPN start and to be managed by pharmacy. If retrial of enteral feed okay with GI, then vital high protein to start 20ml/hr with goal of 55ml/hr
[2020-03-30 09:33] LABS: BE(vivo) -1.8 mmol/L (-2 to +3); HCO3 21.3 mmol/L (22.0-26.0); PCO2 30.1 mmHg (35.0-45.0); PO2 74.1 mmHg (80.0-100.0); pH 7.468 (7.360-7.450); sO2 95.9 % (92.0-98.0)
--- NOTE | 2020-03-30 11:08 | NUR ---
WOUND CARE F/U; ASSESSMENT OF THIS PATIENT WITH THE RN AN GRAPHIC DESIGN MANAGER PRESENT TODAY. THE WOUNDS ARE MUCH IMPROVED PER THE RN TODAY. THE PATIENT IS EXPERIENCING 3RD SPACING BLISTERS RE; HEALTH STATUS THAT NEED TO BE ADRESSED TODAY. THE ABDOMEN HAS AN UNSTABLE LARGE BLISTER 10 X 10 CM X 0.1 CM TODAY. NO S/S OF INFECTION SEEN. RECOMMENDATIONS; -APPLY ABD TO THE ABDOMEN BLISTER DAILY/ PRN SECURE WITH TAPE, APPLY TO ANY ARE AWHERE A BLISTER FORMS. CHANGE DAILY/PRN. RN PRESENT
--- NOTE | 2020-03-30 12:26 | NUR ---
FAXXED CLINICAL UPDATE TO [facility]ARE C[facility] SPOKE WITH MAKENZIE IN ADM SHE RECEIVED UPDATE. DP TO FOLLOW.
--- NOTE | 2020-03-30 13:07 | NUR ---
chart review. cm team update to op centers. she still on vent with nutritional support. bedside nurse provided updates to pt son. will cont following as needed for dc needs.
--- NOTE | 2020-03-30 15:14 | NUR ---
@ 1300, PT'S SON CALLED IN FOR UPDATE. RAVI PROVIDED CODE FOR SECURITY. UPDATE PROVIDED. REASSURANCES AND ENCOURAGEMENT PROVIDED.
--- NOTE | 2020-03-30 17:59 | NUR ---
PT OPENS EYES TO VOICE AND SEEMS TO BE ABLE TO FOLLOW DIRECTION BASED UPON SIMPLE BODY LANGUAGE. COOPERATIVE WITH ORAL CARE. HYPERTENSION CONTINUES TO BE AN ISSUE. LABETALOL ROUTINELY AND NTG PASTE TOPICAL ADDED TO REGIMEN. TPN W/ LIPIDS INITIATED. PROTONIX DRIP STOPPED. URINE OUTPUT WAS EXCELLENT. WOUND CARE SAW PT TODAY AND RECOMMENDED FOR THE RUPTURED BLISTER TO RLQ ABDOMEN CLEANING W/ WOUND CLEANSER, APPLYING ABD PAD AND SECURING W/ TAPE. PT PROGRESSING TOWARD GOALS.
[2020-03-31] VITALS (24 sets, daily range): BP systolic 160–207; BP diastolic 51–108
[2020-03-31 04:29] LABS: MAGNESIUM 1.9 mg/dL (1.8-2.4); TROPONIN-I <0.06 ng/mL (<0.06)
[2020-03-31 05:10] LABS: HEMATOCRIT 24.9 % (37.0-47.0); HEMOGLOBIN 8.5 gm/dL (12.0-15.0); MCH 31.3 pg (26.0-34.0); MCHC 34.1 g/dL (28.0-37.0); MCV 91.9 fL (80.0-100.0); RBC 2.7 mil/uL (4.20-5.00); RDW 17.9 % (10.5-14.5); WBC 8.9 thou/uL (4.0-11.0)
[2020-03-31 10:45] LABS: ALBUMIN 2.5 g/dL (3.4-5.0); CALCIUM 8.9 mg/dL (8.5-10.1); CREATININE 0.9 mg/dL (0.6-1.0); PHOSPHORUS 2.9 mg/dL (2.5-4.9); POTASSIUM 3.5 mmol/L (3.5-5.1); TOTAL BILIRUBIN 0.8 mg/dL (0.2-1.0); TOTAL PROTEIN 4.7 g/dL (6.4-8.2)
--- NOTE | 2020-03-31 11:23 | NUR ---
Pt has transitioned off enteral nutrition to TPN
[2020-03-31 14:01] LABS: BE(vivo) 0.8 mmol/L (-2 to +3); HCO3 24.6 mmol/L (22.0-26.0); PCO2 36.1 mmHg (35.0-45.0); PO2 57.6 mmHg (80.0-100.0); pH 7.452 (7.360-7.450); sO2 91.4 % (92.0-98.0)
--- NOTE | 2020-03-31 18:00 | NUR ---
RAVI, FAMILY MEMBER CALLED INQUIRING FOR A PT STATUS UPDATE. INFORMED RN IN ANOTHER PT ROOM PROVIDING CARE, UNABLE TO COME TO PHONE. IN COURSE OF CONVERSATION, LOST PHONE CONNECTION. NOTIFIED RN OF CALL FROM FAMILY AND LOST PHONE CONNECTION.
--- NOTE | 2020-03-31 19:25 | NUR ---
PT SEEN TODAY BY //PENAL OFFICER DOMENIC. PT WAS PLACED ON CPAP TRIAL TODAY, PO2 CAME BACK AT 57.1, ORDERED NIF/RSBI TO BE COMPLETED, PT NEEDED INTERPRETATION FOR FARSI, PT'S SON AIDED IN INSTRUCTING TO INHALE IN FARSI, PT WAS NOT ABLE TO FOLLOW DIRECTIONS, APPEARED TO HAVE SHORT ATTENTION SPAN, PER PT'S SON PT'S CVA 35YEARS AGO LEFT PT UNABLE TO INHALE QUICKLY AND WOULD FAIL THE TEST, UPDATED REGARDING THIS FINDING, TRACH WAS DISCUSSED AND SPOKE WITH FAMILY. RN SPOKE WITH THE SON AT 1600 TO DISCUSS AIDING RN/RT FOR NIF/RSBI, ALSO UPDATED THE SON REGARDING CURRENT STATUS AND PLAN. SON VOICED GRATITUDE AND STATED TO CALL AND UPDATE ANYTIME THE STAFF WANTS TO OR NEEDS HELP WITH. SPOKE WITH THE SON ABOUT TRACH, AFTER THE CONVERSATION ENDEED, THE SON CALLED THE HOSPITAL WANTING TO REACH ,. RN WAS NOT AVAILABLE AT THAT TIME (AROUND 1700) AND WILL HAVE TO DEFER TO TOMORROW'S DAY SHIFT. PT NOT PROGRESSING TOWARDS DISCHARGE GOALS AT THIS TIME.
[2020-04-01] VITALS (34 sets, daily range): BP systolic 105–184; BP diastolic 34–86
[2020-04-01 09:29] LABS: BE(vivo) -0.9 mmol/L (-2 to +3); PCO2 34.6 mmHg (35.0-45.0); PO2 77.9 mmHg (80.0-100.0)
[2020-04-01 09:37] LABS: ALBUMIN 2.1 g/dL (3.4-5.0); CALCIUM 8.7 mg/dL (8.5-10.1); CREATININE 0.8 mg/dL (0.6-1.0); PHOSPHORUS 2.7 mg/dL (2.5-4.9); POTASSIUM 3.5 mmol/L (3.5-5.1); TOTAL BILIRUBIN 0.5 mg/dL (0.2-1.0); TOTAL PROTEIN 4.6 g/dL (6.4-8.2)
--- NOTE | 2020-04-01 13:57 | NUR ---
FAXED CLINICAL UPDATE TO [facility]ARE [facility] RECEIVED CONFIRMATION AND SPOKE WITH MAKENZIE IN ADM. DP TO FOLLOW.
--- NOTE | 2020-04-01 15:48 | NUR ---
chart review. cm spoke with son nichol, via phone call. active listen. " thank you for reaching out. been talking with dr kaur and nurses. thank you"/nichol. amirah remains on vent with nutritional support. will cont following as needed for dc. no anticipated dc over the weekend. cm team updated op centers.
[2020-04-02] VITALS (47 sets, daily range): BP systolic 81–160; BP diastolic 37–130
[2020-04-02 05:40] LABS: HEMATOCRIT 25.1 % (37.0-47.0); HEMOGLOBIN 8.4 gm/dL (12.0-15.0); MCHC 33.6 g/dL (28.0-37.0); MCV 92.4 fL (80.0-100.0); RBC 2.72 mil/uL (4.20-5.00); RDW 18.1 % (10.5-14.5); WBC 8.2 thou/uL (4.0-11.0)
[2020-04-02 06:08] LABS: CREATININE 0.8 mg/dL (0.6-1.0); MAGNESIUM 2.2 mg/dL (1.8-2.4); PHOSPHORUS 2.5 mg/dL (2.5-4.9); POTASSIUM 3.8 mmol/L (3.5-5.1)
--- NOTE | 2020-04-02 19:05 | NUR ---
DR. PARISH ROUNDED ON PT AND ASKED IF GI HAS SEEN PT TODAY AND IF THEY HAVE ANY PLANS TO START TUBE FEEDINGS PRIOR TO PEG PLACEMENT. DR GRANDA ALREADY HAD ROUNDED ON PT SO THIS RN PAGED HIM. HE WAS NO LONGER MID LEVEL DEVELOPER SO PAGE WAS PLACED TO DR NELSON. NO CALL BACK RECEIVED FROM DR NELSON. TPN IS STILL INFUSING ORDERED. PT'S SKIN IS VERY TIGHT, EXTREMELY EDEMATOUS AND IS WEEPING IN VARIOUS PLACES. PT'S SHEETS CHANGED AND PT'S GOWN CHANGED DO TO LEAKING SEROUS FLUID ON ABD AND R HAND. PT PREVIOUSLY HAD BLISTER TO ABD THAT HAD BURST OPEN AND IT IS NOW CONTINOUSLY WEEPING. NEW ABD PAD APPLIED. GAUZE PLACE ON TOP OF R HAND. PT IS R SIDED FLACCID. PT DID ALLOW ORAL CARE TODAY BUT TIGHTLY SQUEEZED EYES SHUT FOR PUPIL ASSESSMENT AND SHOOK HER HEAD BACK AND FORTH. PT HAS SOFT LIMB RESTRAINT TO LEFT WRIST AND DOES ATTEMPT TO PULL THINGS THAT ARE IN HER REACH. PT REACHES FOR NURSES HAND WHEN TURNING AND ATTEMPS TO SQUEEZE HARD BUT DOES NOT EPIC DIRECTOR TO COMMAND.
[2020-04-03] VITALS (48 sets, daily range): BP systolic 102–162; BP diastolic 35–84
[2020-04-03 07:18] LABS: HEMATOCRIT 23.6 % (37.0-47.0); HEMOGLOBIN 7.8 gm/dL (12.0-15.0); MCH 30.5 pg (26.0-34.0); MCHC 32.9 g/dL (28.0-37.0); MCV 92.8 fL (80.0-100.0); RBC 2.54 mil/uL (4.20-5.00); RDW 18.1 % (10.5-14.5); WBC 7.7 thou/uL (4.0-11.0)
[2020-04-03 07:28] LABS: CREATININE 0.8 mg/dL (0.6-1.0); MAGNESIUM 2.2 mg/dL (1.8-2.4); PHOSPHORUS 2.5 mg/dL (2.5-4.9); POTASSIUM 3.7 mmol/L (3.5-5.1)
--- NOTE | 2020-04-03 17:01 | NUR ---
PT INTUBATED, NO SEDATION. PT IS AROUSABLE BUT DOES NOT FOLLOW ANY COMMANDS AND IS AGITATED WHEN CARE/ASSESSMENTS ARE BEING DONE. UNABLE TO ASSESS PUPIL RESPONSE TO LIGHT DUE TO PT SQUEEZING EYES SHUT. AFEBRILE, ADEQUATE UOP, FMS IN PLACE WITH MINIMAL DRAINAGE. NO CPAP TRIAL TODAY PER DR BRUMFIELD. TPN IN PLACE FOR NUTRITION. NO NG/OG TUBE PER GI. PT HAS 3/4+ PITTING ANSARCA THROUGHOUT BODY. PT'S SON WAS UPDATED AND EDUCATED EXTENSIVELY FROM [id number]. HE IS VERY UPSET WITH THE CARE HIS MOTHER IS GETTING. WANTS HIS OWN FAMILY DOCTOR TO COME SEE THE PT, DR WALTON, DUE TO THE LANGUAGE BARRIER. WE SPOKE ABOUT AN REGROOVER AND HE UNDERSTANDS THAT IT WILL BE THE SAME HIM TRYING TO TALK TO HER (WHICH WAS ATTEMPTED PREVIOUSLY, UNSUCCESSFULLY). PT HAS BEEN UPDATED THROUGHOUT THE DAY. PT NOT PROGRESSING TOWARDS POC.
[2020-04-04] VITALS (48 sets, daily range): BP systolic 102–153; BP diastolic 33–63
[2020-04-04 06:35] LABS: HEMATOCRIT 21.5 % (37.0-47.0); HEMOGLOBIN 7.2 gm/dL (12.0-15.0); MCH 31.1 pg (26.0-34.0); MCHC 33.7 g/dL (28.0-37.0); MCV 92.2 fL (80.0-100.0); RBC 2.33 mil/uL (4.20-5.00); RDW 18.6 % (10.5-14.5); WBC 6.9 thou/uL (4.0-11.0)
--- NOTE | 2020-04-04 06:47 | NUR ---
VSS. PT WAKES; DOESNT FOLLOW COMMANDS; UNCOOPERATIVE WITH CARE/ASSESSMENTS. 700 CC URINE OUTPUT OVERNIGHT. WEEPING EDEMA GENERALIZED; SOAKING PADS. MOVES LEFT ARM.
[2020-04-04 07:01] LABS: MAGNESIUM 2.3 mg/dL (1.8-2.4); PHOSPHORUS 2.4 mg/dL (2.5-4.9)
[2020-04-04 07:07] LABS: CALCIUM 8.7 mg/dL (8.5-10.1); CREATININE 0.7 mg/dL (0.6-1.0); POTASSIUM 3.7 mmol/L (3.5-5.1)
[2020-04-04 07:49] LABS: BE(vivo) -0.5 mmol/L (-2 to +3); HCO3 23.4 mmol/L (22.0-26.0); PCO2 34.9 mmHg (35.0-45.0); PO2 80.9 mmHg (80.0-100.0); pH 7.444 (7.360-7.450); sO2 96.4 % (92.0-98.0)
--- NOTE | 2020-04-04 08:47 | NUR ---
0840-PT PASSED CPAP TRIAL AND WAS EXTUBATED BY RT EDWINA RN AT BEDSIDE AT TIME OF EXTUBATION. O2 SAT 100% 40% FIO2 FACE SHIELD, HR 62, R 14, BP 116/46.
--- NOTE | 2020-04-04 15:53 | NUR ---
1545-PT'S SON RAVI CALLED AND RN SPOKE WITH HIM OVER THE PHONE. QUESTIONS ANSWERED AND PT UPDATE GIVEN.
--- NOTE | 2020-04-04 19:50 | NUR ---
PT EXTUBATED AT 0840. PT ON 5L HIGH FLOW NC AT END OF SHIFT. PT PROGRESSING TOWARDS GOALS.
[2020-04-05] VITALS (15 sets, daily range): BP systolic 111–198; BP diastolic 41–65
[2020-04-05 04:31] LABS: HEMATOCRIT 23.1 % (37.0-47.0); HEMOGLOBIN 7.7 gm/dL (12.0-15.0); MCH 30.9 pg (26.0-34.0); MCHC 33.2 g/dL (28.0-37.0); MCV 93.1 fL (80.0-100.0); RBC 2.48 mil/uL (4.20-5.00); RDW 18.5 % (10.5-14.5); WBC 6.1 thou/uL (4.0-11.0)
[2020-04-05 04:36] LABS: CALCIUM 8.9 mg/dL (8.5-10.1); CREATININE 0.8 mg/dL (0.6-1.0); MAGNESIUM 2.2 mg/dL (1.8-2.4)
--- NOTE | 2020-04-05 06:43 | NUR ---
VSS. TITRATED OXYGEN FROM 5L OXYGEN PER HF NC TO 3L. SATS MAINTAINED ABOVE 95%. 2650 CC URINE OUT OVERNIGHT. PT HAS WEEPING GENERALIZED EDEMA; SOAKED THROUGH MULTIPLE PADS THROUGHOUT SHIFT. PT UNCOOPERATIVE WITH CARE AND ASSESSMENTS. PT STARTING TO MUMBLE WORDS; PT DOES NOT UNDERSTAND WHAT NURSE IS SAYING DURING CARE DUE TO LANGUAGE BARRIER. PT PROGRESSING TOWARDS GOALS IN PLAN OF CARE.
--- NOTE | 2020-04-05 15:50 | NUR ---
RECEIVED TRANSFER FROM ICU 238, REPORT RECEICED FROM GRZEGORZ TERRY.
--- NOTE | 2020-04-05 16:22 | NUR ---
Patient had a stable morning. Continues to have adequate oxygenation on 2l per NC. Waking up more. Heart rate and rhythm stable. Continues to be grossly edematous and weeping. Dr. Maddox rounded and discontinued Enhanced precautions for Covid. Patient moved to POD 3, room 248. See documentation on interventions for detials. Spoke to the patient's son Diego. Updated on patient condition and plan of care. Let him know that he could come up and see her now. He was thrilled.
--- NOTE | 2020-04-05 16:41 | NUR ---
SON AT BEDSIDE TO VISIT.
--- NOTE | 2020-04-05 19:00 | NUR ---
PATIENT IS SLOWLY PROGRESSING TOWARDS OUTCOME GOALS.
[2020-04-06] VITALS (16 sets, daily range): BP systolic 134–194; BP diastolic 36–82
[2020-04-06 03:44] LABS: BE(vivo) 0.5 mmol/L (-2 to +3); HCO3 24.7 mmol/L (22.0-26.0); PCO2 37.9 mmHg (35.0-45.0); PO2 65.4 mmHg (80.0-100.0); pH 7.432 (7.360-7.450); sO2 93.5 % (92.0-98.0)
--- NOTE | 2020-04-06 03:50 | NUR ---
ASSUMED OT CARE AT 1900. BP ELEVATED AT TIMES LABETALOL PRN GIVEN . PT ON 3L NC SATS OF 95%. PT HAD A UNEVENTFUL NOC. PT REMAINS STABLE, WILL CONTINUE TO MONITOR PER POC.
[2020-04-06 06:50] LABS: HEMATOCRIT 22.7 % (37.0-47.0); MCH 31.1 pg (26.0-34.0); MCHC 33.3 g/dL (28.0-37.0); MCV 93.4 fL (80.0-100.0); RBC 2.43 mil/uL (4.20-5.00); WBC 5.2 thou/uL (4.0-11.0)
[2020-04-06 06:53] LABS: HEMOGLOBIN 7.6 gm/dL (12.0-15.0)
[2020-04-06 07:04] LABS: CALCIUM 8.9 mg/dL (8.5-10.1); CREATININE 0.8 mg/dL (0.6-1.0); MAGNESIUM 2.3 mg/dL (1.8-2.4)
--- NOTE | 2020-04-06 14:24 | NUR ---
chart review. pt was extubated, on oxygen. cm visited with son nichol who reported " i go to visit her and she open her eyes to my voice and my sister on phone call. thank you"/nichol. updates to be sent to op centers.
--- NOTE | 2020-04-06 20:39 | NUR ---
Pt transferred from ICU at approximately 1630; transferred to room safely. A to self only, non verbal, moans. On telemetry; no signs of chest pain, crushing sensation and heaviness- on full code. Vital signs stable; with BP elevation noted- with scheduled BP meds ordered. On O2 at 2lpm via nasal cannula, no respiratory distress noted. On nothing per orem- no nausea, no vomiting and no abdominal pain noted; mouth care to be done- Night RN informed; as per ICU nurse pt had ileus, thus NPO order- no NG noted on patient. With emanuel in place- draining well; output measured and recorded accordingly. With bilateral upper and lower extremity swelling, wepping. Pt turned on her sides. With wound on her abdomen and coccyx- Night RN informed that upon checking, no updated pictures taken for patient. wWith 3 lumen IJ cath- TPN at 60cc/hr, infusing well; on IV antibiotics as well. Lab called and said they needed green top for patient- specimen obtained and sent to lab. Labetalol not available at [facility], pharmacy informed; night RN informed that meds needs to be given, requested from pharmacy already. To continue monitoring patient.
--- NOTE | 2020-04-06 21:15 | NUR ---
Pt. resting in the bed with her eyes opened, but unable to communicate. She does respond to touch. Bp was in the 130's and is due for labetalol. Spoke to Evelyn COOL and order to hold medication. Pt. oxygen saturations have been in the mid 90's with 02 on at 2 liters per nasal canula. She has a large amount of seeping edema in bilateral arms and hands. Upper extremities elevated up on pillows and wrapped in dry chuxs. Lower extremities with pitting edema and elevated up on pillows. Abdomen is also distended. Skin is cool upon touch. Pt. turned and repositioned. Bed alarm is on.
--- NOTE | 2020-04-07 00:30 | NUR ---
Evelyn CLINICAL RESEARCH MONITOR called as patient seems to be retaining more fluid ecspecially in her hands. Lower lung benjamin sound crackley. O2 saturations in the mid 90's. Pt. running sinus rythmn on the tele monitor. Also, due for midnoc dose of labetalol, but bp is in the 130's. Medication held. Bed alarm is on.
--- NOTE | 2020-04-07 03:45 | NUR ---
Order received for ivp lasix via Evelyn VISUAL MANAGER and t was given (see emar). Pt. having adequate urinary output via emanuel catheter. Unable to draw blood from patients IJ. No increased shortness of air. Iv lasix given (see emar).
--- NOTE | 2020-04-07 06:00 | NUR ---
Pt. resting in the bed with eyes closed. Lebatolol held this am due to low bp. She has been repostioned. Continues to have large amount of drainage from bilateral arms and hands. Extremities elevated up on pillows. No increased shortness of air. Head of the bed elevated and is on 02 at 2 liters per nasal canula.
[2020-04-07 07:37] VITALS: BP 109/56
--- NOTE | 2020-04-07 08:21 | NUR ---
If pt continues to fail oral feeding trials, and is able to restart enteral nutrition, then recommend new formula of vital AF 1.2 at goal of 65ml/hr. Otherwise continue tpn.
[2020-04-07 09:49] LABS: HEMATOCRIT 21.3 % (37.0-47.0); MCH 31.5 pg (26.0-34.0); MCHC 33.5 g/dL (28.0-37.0); MCV 94.1 fL (80.0-100.0); RBC 2.26 mil/uL (4.20-5.00); RDW 19.6 % (10.5-14.5)
[2020-04-07 10:07] LABS: HEMOGLOBIN 7.1 gm/dL (12.0-15.0)
[2020-04-07 10:10] LABS: CALCIUM 9.2 mg/dL (8.5-10.1); CREATININE 0.8 mg/dL (0.6-1.0); MAGNESIUM 2.5 mg/dL (1.8-2.4)
--- NOTE | 2020-04-07 11:11 | NUR ---
WOUND CARE F/U; THIS PATIENT HAS ADVANCED FROM ICU TO THE 4W CRITICAL STEPDOWN UNIT. THE WOUNDS WERE ASSESSED TODAY WITH THE RN PRESENT. THE PATIENTS ARMS ARE WEEPING AND EDEMATOUS. THE SACRAL BUTTOCKS SHOWS IMPROVEMENT. THE ABDOMENAL BLISTERED AREA IS RED. I SUSPICIOUS OF CELLULITIS. I WILL ADD AQUACEL AG TO THE DRESSING RECOMMENDATIONS. THE STAFF IS ELEVATING AND OFFLOADING THIS PATIENTS ARMS AND BODY APPROPRIATLY WITH PILLOWS AND WEDGES AND TURNING. RECOMMENDATIONS; 1-ADD A LOW AIR LOSS BED PUMP. 2-ADD AQUACEL AG TO ABDOMEN DRESSINGS. RN PRESENT
--- NOTE | 2020-04-07 11:53 | NUR ---
ASSUMED PT CARE THIS AM. PT VSS, ALERT BUT DOES NOT RESPOND VERBALLY. EYES OPEN WHEN TALKING TO HER. PT HAS GENERALIZED EDEMA WITH ARMS AND HANDS WEEPING FLUID. WHEN BREATHING, PT USES ACCESSORY MUSCLES WHEN EXHALING.
--- NOTE | 2020-04-07 13:35 | NUR ---
PT WAS TRANSFERED OUT OF ICU. PT IS ON IV VANC. SPEECH WAS CONSULTED. PT IS FROM [facility]. 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 PT'S SON RAVI IS PT'S SPOKES PERSON. CM TO FOLLOW INDICATED WITH DC PLANNING.
[2020-04-07 14:52] VITALS: BP 158/62
--- NOTE | 2020-04-07 14:53 | NUR ---
FAXED CLINICAL UPDATE TO [facility] SPOKE WITH MAKENZIE IN ADM SHE RECEIVED UPDATE.
[2020-04-07 20:07] VITALS: BP 145/62
[2020-04-08 00:19] VITALS: BP 143/70
[2020-04-08 05:51] LABS: MCH 31.6 pg (26.0-34.0); MCHC 33.5 g/dL (28.0-37.0); MCV 94.3 fL (80.0-100.0); RBC 2.22 mil/uL (4.20-5.00); WBC 5.1 thou/uL (4.0-11.0)
--- NOTE | 2020-04-08 06:09 | NUR ---
Assumed pt care at 1900. Alert to self,will open eyes spontaniously refuses oral care and shakes her head away. VSS. No s/sx of pain on assessment. Repositioned every two hrs w/o any problems,dsg to sacrum/abd C/D/I. Edeme persists allover body moreso on BUE with weeping noted on different spots,elevated on chux and pillows;diffuse bruising noted on lower abd. Pt remains NPO with TPN infusing via RIJ w/o any problems, all lumens patent and draws blood though sluggish to flush. SB/SR on telemetry,resting w/o distress on 2L/NC per RT. Fall precautions in place. Sheridan patent to DD with yellow urine.
[2020-04-08 06:11] LABS: CALCIUM 9.5 mg/dL (8.5-10.1); CREATININE 0.8 mg/dL (0.6-1.0); MAGNESIUM 2.5 mg/dL (1.8-2.4); POTASSIUM 3.9 mmol/L (3.5-5.1)
[2020-04-08 07:28] VITALS: BP 133/67
--- NOTE | 2020-04-08 10:37 | NUR ---
PT CONTINUES ON IV VANC AND ANOTHER IV ABX. PT CONTINUES WITH TPN. ST SAW PT YESTERDAY AND INDICATED STILL NOTHING BY MOUTH. DR. SCANLON AND GI TO REACH OUT TO PT'S FAMILY TO DISCUSS NUTRITIONAL SUPPORT AND OR PALLIATIVE/HOSPICE SERVICES. CM TO FOLLOW INDICATED WITH DC PLANNING.
[2020-04-08 11:43] VITALS: BP 197/74
--- NOTE | 2020-04-08 13:15 | NUR ---
Assumed pt care at 7am.Pt in bed sleeping on and off but arousable.Assessment completed with oral care.Repositioned q2h for comfort.Dr Meyers here,he said that pt family will be contacted today regarding peg tube.Pt tolerated med and kept npo.Fall bundle in place.No distress s/s noted.Will continue to monitor.
[2020-04-08 15:18] VITALS: BP 152/75
[2020-04-08 20:00] VITALS: BP 166/76
[2020-04-08 21:00] VITALS: BP 168/69
[2020-04-09] VITALS (7 sets, daily range): BP systolic 127–187; BP diastolic 46–81
[2020-04-09 05:56] LABS: HEMOGLOBIN 6.6 gm/dL (12.0-15.0); RBC 2.07 mil/uL (4.20-5.00); WBC 4.1 thou/uL (4.0-11.0)
[2020-04-09 06:01] LABS: MCHC 33.6 g/dL (28.0-37.0); MCV 95.2 fL (80.0-100.0); RDW 19.4 % (10.5-14.5)
[2020-04-09 06:14] LABS: CALCIUM 9.6 mg/dL (8.5-10.1); CREATININE 0.9 mg/dL (0.6-1.0); POTASSIUM 4.2 mmol/L (3.5-5.1)
[2020-04-09 06:18] LABS: HEMATOCRIT 19.7 % (37.0-47.0)
--- NOTE | 2020-04-09 07:23 | NUR ---
PROGRESS PT AWAKENS WITH CARES BUT SLEPT MOST OF SHIFT. REPOSITIONED FREQUENTLY AND ARMS ELEVATED MUCH POSSIBLE WEEPING EDEMATOUS ARMS CHUX PADS CHANGED FROM SEROUS DRAINAGE. FREDERICK INTACT DRAINING YELLOW URINE WITH SEDIMENT NOTED. TPN INFUSING INTO RIGHT JUGULAR PICC LINE VSS CONTINUE POC.
--- NOTE | 2020-04-09 11:33 | NUR ---
PT IS SCHEDULED TO HAVE PEG PLACED TODAY AT 12:30. PT IS TO RECIEVE UNIT OF BLOOD PRIOR TO PROCEDURE. CLINICAL UPDATES TO BE SENT TO OP CENTER POST PROCEDURE. CM TO FOLLOW INDICATED WITH DC PLANNING.
--- NOTE | 2020-04-09 13:11 | NUR ---
Assumed pt care at 7am.Pt in bed sleeping on and off.Assessment completed.vss. Meds given as ordered and well tolerated.Dr Meyers here,order noted.Son called for blood consent and witnessed by Jenn Ayala rn.Complete bed bath given by broker associate and pt was repositioned q2h as needed.Foam drsg applied to abdominal blister.Received call from preop about picking up pt for peg tube and updates given.Around 12noon,pt son arrived and wanted to talk to Dr Meyers prior to pt going for procedure.Dr Meyers notified and he came to talk to pt son.At 1245,pt left for gi lab per bed accompanied by 2 gi malachi rn.Will continue to monitor.
[2020-04-10] VITALS: BP 185/62
[2020-04-10 05:31] LABS: HEMATOCRIT 26.6 % (37.0-47.0); MCH 30.6 pg (26.0-34.0); MCHC 33.1 g/dL (28.0-37.0); MCV 92.4 fL (80.0-100.0); RBC 2.88 mil/uL (4.20-5.00); RDW 19.1 % (10.5-14.5); WBC 3.3 thou/uL (4.0-11.0)
[2020-04-10 05:38] LABS: HEMOGLOBIN 8.8 gm/dL (12.0-15.0)
[2020-04-10 05:48] VITALS: BP 135/57
[2020-04-10 05:57] LABS: CALCIUM 9.6 mg/dL (8.5-10.1); CREATININE 0.9 mg/dL (0.6-1.0); MAGNESIUM 2.4 mg/dL (1.8-2.4); PHOSPHORUS 3.5 mg/dL (2.5-4.9); POTASSIUM 4.2 mmol/L (3.5-5.1)
[2020-04-10 07:20] VITALS: BP 141/69
--- NOTE | 2020-04-10 07:28 | NUR ---
TELE D/C PER PHYSICIAN ORDER. LABETELOL D/C D/T PT OFF TELE. HYPERTENSION TX WITH PILLS.
--- NOTE | 2020-04-10 08:14 | NUR ---
When ready to use PEG, recommend vital AF 1.2 to start 30ml/hr with a goal of 65ml/hr. Defer fluid needs/flushes to physician-pt with anasarca Taper off tpn
--- NOTE | 2020-04-10 10:34 | NUR ---
WOUND CARE F/U; THIS PATIENT IS GETTING GREAT CARE EVIDENCED BY THE ABDOMENAL WOUND IS IMPROVING WELL THE BILATERAL BUTTOCKS WOUNDS. THERE IS LESS 3RD SPACING WELL THE ARMS ARE NOT CURRENTLY WEEPING. RECOMMENDATIONS; CONTINUE CURRENT TREATMENT.
--- NOTE | 2020-04-10 11:50 | NUR ---
PT HAD PEG PLACED YESTERDAY. TF TO BE INITIATED TODAY. CARE TEAM INDICATED NO DISCHARGE ANTICIPATED OVER THE WEEKEND. CLINICAL UPDATE SENT TO OP CENTER INDICATING PROBABLE DC BEGINNING OF NEXT WEEK. CM TO FOLLOW INDICATED WITH DC PLANNING.
[2020-04-10 11:54] VITALS: BP 154/89
--- NOTE | 2020-04-10 11:56 | P ---
[facility] [place] [address] PROCEDURE REPORT Name: CHARLY JACOBS Room #: 452- ADM IN M.R.#: [id number] Admission: 03/13/20 Attend Phys: Clyde Carlson MD Discharge: Date of : 35 Report #: [id number] THIS REPORT FOR: cc: Homer Sims MD, Shyam MD McElhinney, Christian C. MD ~ CC: Kyler Sims DATE OF SERVICE: 04/09/2020 PROCEDURE PERFORMED: Upper endoscopy with PEG tube placement. HISTORY OF PRESENT ILLNESS: The patient is an 85-year-old female who was admitted with COVID pneumonia. Also had a significant upper GI bleed, underwent an upper endoscopy by my partner, Dr. Layton on 03/26/2020 noted to have a large amount of blood within the stomach and the clots. Gastric ulcer was found in the fundus and this was injected with lidocaine and endoclips were placed at that time. She has had no further obvious GI bleed since then, although her hemoglobin continues to remain low at times, earlier today was 6.6, yesterday was 7.0. She has been on PPI therapy. Unfortunately, the patient has been unable to maintain her nutrition and has been on TPN. She is extubated. She remains fairly confused and lethargic. The plan therefore is to place a PEG tube at this time. PROCEDURE: The risks and benefits of the procedure were explained to the patient's son, those risks including but not limited to bleeding, perforation, the risk of sedation as well as potential risk for infection. He understood these risks and gave informed consent. The patient was given propofol per anesthesia. She was given 2 grams of Ancef prior to the procedure. She is also on vancomycin at this time. Next, using a standard Olympus upper endoscope, the scope was placed in the patient's mouth and advanced under direct vision through the esophagus, stomach and into the second portion of the duodenum. The esophagus was normal throughout. The GE junction was normal. In the stomach, a single endoclip was noted in the gastric fundus. There was a mild gastritis in this area, a few linear erosions, but no ulcerations and no evidence of bleeding. The gastric body and antrum were normal. The pylorus was normal and patent. The duodenal bulb, first and second portion were all normal. The scope was then brought back up into the patient's stomach and the stomach was insufflated with air. Good transillumination was noted through the anterior abdominal wall. The area was then marked and the skin was cleaned with chlorhexidine solution. Next, a sterile drape was put in place. Next, Xylocaine was used as a local anesthetic. Next, using a seeker needle, the [address] [id number] PROCEDURE REPORT Name: CHARLY JACOBS Room #: 452-P [facility] IN M.R.#: [id number] Admission: 03/13/20 Attend Phys: Clyde Carlson MD Discharge: Date of : 35 Report #: [id number] needle was advanced through the anterior abdominal wall into the gastric lumen under direct vision without difficulty. Next, the needle was removed. A small 1 cm transverse incision was made through the skin. Next, a catheter needle was then advanced through the mid portion of the incision again into the gastric lumen under direct vision. The needle was removed leaving the catheter in place. A blue guidewire was then advanced through the catheter and grasped with a snare and brought back up through the patient's mouth with the endoscope. A 20-Albanian PEG tube was then secured to the blue guidewire and using a pull technique, was put into supine position without difficulty. Next, the scope was reintroduced into the patient's stomach, the PEG tube bumper was noted to be in good position in the mid body of the stomach. Scope was then withdrawn and then the PEG tube was secured to the anterior abdominal wall. The procedure was terminated. The patient tolerated the procedure well. IMPRESSION: 1. Previous fundic gastric ulcer in the process of healing, a single endoclip remains in place, mild gastritis and a few erosions were noted, but no evidence of bleeding. 2. Status post percutaneous endoscopic gastrostomy tube placement as described above. 3. Otherwise, normal upper endoscopy. RECOMMENDATIONS: 1. Okay to start using PEG tube for medications tonight, for tube feedings tomorrow. 2. We will continue to monitor hemoglobin closely. If signs of GI bleed, may need to consider colonoscopy or other options. Thank you for allowing me to participate in her care. <ELECTRONICALLY SIGNED> By: Alejo Vivar MD 04/10/20 1156 [id number] Alejo Vivar MD /nt
--- NOTE | 2020-04-10 13:42 | NUR ---
Received asleep on bed. Due medications given thru PEG. On MS, not on telemetry; no complains and signs of chest pain, crushing sensation and heaviness. On O2 at 1-2 lpm via nasal cannula. On nothing per orem, nouth care done. With PEG tube in place- cadence specialists seen pt today and with recommendations; pharmacist informed re: pt to start TF and to adjust TPN rate; verified with Dr Meyers re: H2O flushes- to hold for now. On blood sugar monitoring, taken and recorded accordingly; with sliding scale insulin ordered. With emanuel in place, draining well; output measured and recorded accordingly. With [address]- dressing C/D/I; with TPN at 60cc/hr- rate reduced to 30cc/hr by pharmacy. Pt turned on her sides. With wounds at abdomen and sacrum- pt seen and examined by Wound nurse today. With bilat UE and LE edema, weeping, extremities kept elevated and chux placed underneath. Coordinated with ST to inform staff whenever they will be seeing pt, son wants to be present during assessment as per Dr Meyers. Pt's son called this PM, update given. To continue monitoring patient.
--- NOTE | 2020-04-10 13:58 | NUR ---
FAXED CLINICAL UPDATE TO [facility] SPOKE WITH MAKENZIE IN ADM SHE RECEIVED UPDATE.
[2020-04-10 20:01] VITALS: BP 204/76
[2020-04-10 20:03] VITALS: BP 184/66
[2020-04-11 04:32] VITALS: BP 160/72
[2020-04-11 04:49] LABS: HEMATOCRIT 26.4 % (37.0-47.0); HEMOGLOBIN 8.7 gm/dL (12.0-15.0); MCH 30.6 pg (26.0-34.0); MCHC 33.1 g/dL (28.0-37.0); MCV 92.5 fL (80.0-100.0); RBC 2.85 mil/uL (4.20-5.00); RDW 18.2 % (10.5-14.5); WBC 3.3 thou/uL (4.0-11.0)
--- NOTE | 2020-04-11 04:54 | NUR ---
Pt. rested quietly during the night when checked on during frequent rounds. She has been non-verbal, but opens her eyes with verbal or touch. Continues to have a large amount of edema in bilateral arms and legs. Bilateral arms have seepage. All extremities elevated up on pillows. Bp elevated and Chloé ORAL PATHOLOGIST notifed and clonidine given and bp lower this am. O2 saturations have been in the upper 90's with oxygen on at 1 liter per a nasal canula. Bed alarm is on. Pt. turned and repositioned.
[2020-04-11 04:59] LABS: CALCIUM 9.2 mg/dL (8.5-10.1); CREATININE 0.9 mg/dL (0.6-1.0)
[2020-04-11 08:01] VITALS: BP 148/66
[2020-04-11 15:32] VITALS: BP 141/69
[2020-04-11 19:34] VITALS: BP 157/75
--- NOTE | 2020-04-11 20:02 | NUR ---
Assumed pt care at 7am.Pt in bed sleeping on and off.Repositioned q2h for comfort.Complete bed bath given.Assessment completed.vss.Generalized edema reduced with lasix ivp.Tube feeding and tpn in progress.Sheridan to dd with adequate output.Son called but was too busy with critical patient to answer call.Fall bundle in place.Will continue to monitor.
--- NOTE | 2020-04-12 04:35 | NUR ---
Pt. rested quietly during the night when checked on during frequent rounds. She is non-verbal, but follows with her eyes. Bilateral pitting edema in both bilateral upper and lower extremities. Extremities elevated up on pillows. No shortness of air. Continues on 1 liter of oxygen via nasal canula. Pt. turned and repositioned. Bed alarm is on.
[2020-04-12 05:05] LABS: CALCIUM 9.1 mg/dL (8.5-10.1)
[2020-04-12 05:18] LABS: HEMATOCRIT 26.9 % (37.0-47.0); HEMOGLOBIN 9.1 gm/dL (12.0-15.0); MCH 31.4 pg (26.0-34.0); MCHC 33.8 g/dL (28.0-37.0); MCV 92.8 fL (80.0-100.0); RBC 2.9 mil/uL (4.20-5.00); RDW 18.3 % (10.5-14.5); WBC 3.3 thou/uL (4.0-11.0)
[2020-04-12 07:54] VITALS: BP 150/52
--- NOTE | 2020-04-12 11:45 | NUR ---
PATIENT RESTING IN BED HEAD OF BED UP 60 DEGREE'S TUBE FEEDING ORDERED. MEDS PER PEG. HAS IV ABT'S
[2020-04-12 15:26] VITALS: BP 143/66
[2020-04-13 05:34] LABS: HEMATOCRIT 29.4 % (37.0-47.0); HEMOGLOBIN 9.8 gm/dL (12.0-15.0); MCH 30.8 pg (26.0-34.0); MCHC 33.2 g/dL (28.0-37.0); MCV 92.9 fL (80.0-100.0); RBC 3.17 mil/uL (4.20-5.00); RDW 18.5 % (10.5-14.5); WBC 3.8 thou/uL (4.0-11.0)
[2020-04-13 05:44] LABS: CREATININE 0.9 mg/dL (0.6-1.0); POTASSIUM 3.8 mmol/L (3.5-5.1)
[2020-04-13 07:17] VITALS: BP 92/59
--- NOTE | 2020-04-13 08:01 | NUR ---
Please address fluid needs with physician. Hypernatremia Na 150, Cl 113. Anasarca and on lasix. RD to defer any fluid requirements
--- NOTE | 2020-04-13 12:16 | NUR ---
Received awake on bed. Due medications given as prescribed. On MS, not on telemetry; no complains of chest pain, crushing sensation and heaviness. Assisted in ADLs. On O2 at 1lpm via nasal cannula; saturating at 95-96%. On TF Vital AF 1.2mls at 65cc/hr; water flushes to be started today as per Dr Meyers at 250ml every 4 hours. On blood sugar monitoring, taken and recorded accordingly; with sliding scale insulin ordered. Mouth care done. With emanuel in place-draining well; output measured and recorded accordingly. With 3 lumen IJ at R chest; on IV antibiotics. Pt turned on her sides regularly. Wound dressings changed today. No complains of pain made during assessment. To continue monitoring patient.
--- NOTE | 2020-04-13 12:42 | HC ---
[facility] [place] [address] CONSULTATION Name: CHARLY JACOBS Room #: 452- ADM IN M.R.#: [id number] Admission: 03/13/20 Attend Phys: Clyde Carlson MD Discharge: Date of : 35 Report #: [id number] THIS REPORT FOR: cc: Homer Sims MD, Shyam MD Al-Mubaslat, Ahmad MD ~ DATE OF SERVICE: 04/12/2020 ENDOCRINE CONSULTATION NOTE CONSULTING PHYSICIAN: Dr. Meyers. REASON FOR CONSULTATION: Uncontrolled type 2 diabetes mellitus. HISTORY OF PRESENT ILLNESS: This is an 85-year-old female patient whose medical background is rather extensive and noted for hypertension, hypothyroidism, type 2 diabetes mellitus, and history of CVA in the past. The patient was admitted a month ago in the setting of an altered mental status, shortly after the development of COVID-19 pneumonitis. The patient's baseline is noted for right-sided hemiparesis and minimal verbalization and communication. On arrival, the patient was hypoxemic and developed respiratory failure and was subsequently intubated. She has since been extubated with decreasing oxygen requirement, but she has been maintained on steroid therapy. She is status post remdesivir and convalescent plasma. The patient's baseline insulin regimen is not very well defined, but it seems to have included both fast and long-acting insulins. She also was noted to be placed on sitagliptin 50 mg daily. The patient does not communicate well and was not able to shed light on her level of control prior to presentation. She has had longstanding hypothyroidism and is maintained on levothyroxine 50 mcg daily. She also has had a history of hyperlipidemia and was maintained on atorvastatin 20 mg daily and is hypertensive with a prior treatments with amlodipine and furosemide in addition to clonidine. REVIEW OF SYSTEMS: CONSTITUTIONAL: Fatigue, tiredness, but not current issues with fever or chills. HEENT: Negative for sore throat, sinus pain or ear drainage. PULMONARY: Shortness of breath, slow recovery from COVID-19 pneumonitis. Intermittent cough. CARDIAC: Negative for chest pain, syncope or presyncope. GASTROINTESTINAL: Abdominal discomfort, occasional nausea. NEUROLOGIC: Baseline issues with right hemiparesis as well as minimal verbal communication due to prior CVA. Otherwise, review of systems noncontributory [facility] [address] [place] [address] CONSULTATION Name: CHARLY JACOBS Room #: 452-P [facility] IN M.R.#: [id number] Admission: 03/13/20 Attend Phys: Clyde Carlson MD Discharge: Date of : 35 Report #: [id number] other than those mentioned in HPI. PAST MEDICAL HISTORY: 1. Type 2 diabetes mellitus. 2. Hypertension. 3. Hyperlipidemia. 4. Hypothyroidism. 5. Cerebrovascular accident with baseline right hemiplegia. 6. Congestive heart failure. 7. GERD. 8. Generalized deconditioning. 9. Encephalopathy. 10. Recent difficulties with acute hypoxemic respiratory failure leading to intubation, but then she was extubated on 04/04/2020 11. Recent difficulties with upper GI bleeding due to a bleeding ulcer. CURRENT MEDICATIONS: Plavix 75 mg is on hold. Guaifenesin is on hold. DuoNeb q. 4 hours p.r.n., clonidine 0.1 mg daily, Lovenox 40 mg daily, Lasix 40 mg daily, Lantus 30 units daily, Humalog supplemental scale moderate intensity, levothyroxine 25 mcg IV daily, Norvasc 10 mg daily, pantoprazole daily. ALLERGIES: MILK. FAMILY HISTORY: Noncontributory. SOCIAL HISTORY: The patient is not known to consume tobacco, alcohol or illicit drugs. PHYSICAL EXAMINATION: GENERAL: Elderly patient lying supine in bed, appears lethargic, fatigued, noncommunicative. VITAL SIGNS: Blood pressure 150/52 mmHg, heart rate is 70 beats per minute, respirations 15 per minute, temperature 36.1 degrees Celsius. CONSTITUTIONAL: She is lying supine in bed, appears lethargic, fatigued, not communicative. HEENT: Anicteric sclerae. Intact extraocular motions. NECK: Supple, no thyromegaly. CHEST: Noted for moderate air entry bilaterally with coarse breath sounds and scattered rales and rhonchi, but not crackles. HEART: Regular rate and rhythm with a systolic ejection murmur. ABDOMEN: Soft, lax. No guarding. Sluggish bowel sounds. EXTREMITIES: Lower extremity exam, trace ankle edema. NEUROLOGIC: Somnolent, lethargic, but arousable, opens eyes to movement and verbal stimuli, but does not verbalize. No spontaneous movement witnessed. [address] [address] CONSULTATION Name: CHARLY JACOBS Room #: 452-P [facility] IN M.R.#: [id number] Admission: 03/13/20 Attend Phys: Clyde Carlson MD Discharge: Date of : 35 Report #: [id number] PSYCHIATRIC: Not communicative, not verbal, not able to assess. LABORATORY DATA: Blood glucose values from the past several days were reviewed at length. The patient seems to have been consistently over 300 mg/dL for the past 48 hours, prior to that she had been between 170 and 250 mg/dL for the most part. Otherwise, sodium 145, potassium 4.0, chloride 110, CO2 of 26, anion gap 9, BUN 68, creatinine 1.0, glucose 357. AST 11, lipase 238, total bilirubin 0.5, direct bilirubin 0.1, calcium 9.1, phosphorus 3.5, magnesium 2.4, uric acid 8.6, alkaline phosphatase 44, ALT 18, total protein 4.6, albumin 2.1, EGFR 53. Ammonia less than 10. Lactic acid 1.1. Free T4 of 0.8, INR 1.0. White blood count 3.3, hemoglobin 9.1, hematocrit 26.9, platelets 120. TSH 0.627. Ferritin 4.68. Vitamin B12 1154. Hemoglobin A1c 7.5. ASSESSMENT AND PLAN: 1. Type 2 diabetes mellitus. The patient seems to have had difficulties maintaining adequate glycemic control. Naturally, this must have been influenced by her extensive medical course in addition to the need to use glucocorticoids, which has stopped at this point in time. Currently, the patient has been initiated on tube feed support, which is being consistent at 65 mL per hour and is meant to run continuously 24 hours a day. That said, the patient will need scheduled Humalog coverage for her new nutritional intake. I will initiate that in the form of Humalog 8 units q. 6 hours in addition to the ongoing utilization of Humalog supplemental scale, moderate intensity every 6 hours as needed as per her blood glucose profile. As we do so, I would like to drop her Lantus coverage at bed to avoid excessive insulin coverage to 24 units daily. Blood glucose monitoring will continue q. 6 hours and further therapeutic adjustments will be made accordingly. 2. Hypothyroidism. The patient has longstanding hypothyroidism and is maintained usually on levothyroxine 50 mcg daily. I agree with the utilization of IV levothyroxine as it would be essentially impossible to ensure adequate absorption given the utilization of continuous tube feeds. However, again, given her low normal free T4, I would slowly raise her levothyroxine intake to 37.5 mcg daily IV. 3. Hypertension. The patient's level of blood pressure control is marginal. I will defer further therapeutic adjustments in this regard to her primary hospital team. 4. Pneumonia. The patient has had extensive pulmonary issues over the past 2 months including COVID-19 pneumonitis, acute respiratory hypoxemic failure, and the need for prolonged mechanical ventilation, which was stopped about a week ago. She continues to receive bronchodilator therapy and seems to be slowly improving. I have reviewed the patient's clinical care notes, laboratory data, and other pertinent clinical information for over 35 minutes [place] [address] CONSULTATION Name: CHARLY JACOBS Room #: 452-P [facility] IN M.R.#: [id number] Admission: 03/13/20 Attend Phys: Clyde Carlson MD Discharge: Date of : 35 Report #: [id number] time with her. I certainly appreciate this consultation by Dr. Meyers. <ELECTRONICALLY SIGNED> By: Hermelinda Diaz MD 04/13/20 1242 [id number] 20 Hermelinda Diaz MD /nt
--- NOTE | 2020-04-13 14:46 | NUR ---
CARE TEAM INDICATED THAT PT WILL LIKELY BE MEDICALLY STABLE TO DC BACK TO OP [facility]ENTER SKILLED TOMORROW Monday04/14/20. CLINICAL UPDATE WAS SENT TO FACILITY AND ADMISSIONS LIAISON NOTIFIED OF LIKELY DC TOMORROW. CM TO FOLLOW INDICATED WITH DC PLANNING.
[2020-04-13 16:59] VITALS: BP 126/61
[2020-04-13 19:59] VITALS: BP 107/60
[2020-04-14 04:50] VITALS: BP 141/87
[2020-04-14 05:47] LABS: HEMATOCRIT 27.8 % (37.0-47.0); HEMOGLOBIN 9.1 gm/dL (12.0-15.0); MCH 30.6 pg (26.0-34.0); MCHC 32.7 g/dL (28.0-37.0); MCV 93.5 fL (80.0-100.0); RBC 2.97 mil/uL (4.20-5.00); RDW 18.9 % (10.5-14.5); WBC 4.6 thou/uL (4.0-11.0)
[2020-04-14 05:57] LABS: CALCIUM 8.5 mg/dL (8.5-10.1); CREATININE 1.1 mg/dL (0.6-1.0); POTASSIUM 3.8 mmol/L (3.5-5.1)
--- NOTE | 2020-04-14 07:44 | NUR ---
LETHARGIC. DOES NOT FOLLOW ANY DIRECTIONS. ORAL CARE AND SUCTION PROVIDED FREQUENTLY. NO S/S ACUTE DISTRESS NOTED REPORTED AT THIS TIME. CARE TRNASFERRED TO HARRISON NINO.
[2020-04-14 07:49] VITALS: BP 154/53
--- NOTE | 2020-04-14 09:09 | NUR ---
WOUND CARE F/U; PATIENTS RESPIRATORY RATE HAD INCREASE AND IS WET. I ALERTED THE RN. THE BUTTOCKS WOUND WAS ASSESSED AND IMPROVED. WE ELVATED THE HEAD OF BED AND THE RESPERATIONS IMPROVED. THE PATIENTS BODY HAS MUCH MORE 3RD SPACING TODAY. I ALSO DISCUSSED THIS WITH THE RN. THE ABDOMENAL WOUND DRAINAGE IS SLIGHTLY YELLOW AND NTHE DRAINAGE HAS OVERTAKED THE DRESSING. WE WILL CHANGE TO A SACRAL FOAM TO THE ABDOMEN FOR THE INCREASED CAPACITY. RECOMMENDATIONS; 1-CHANGED THE ABDOMEN DRESSING TO SACRAL FOAM FOR NOW. DISCUSSED WITH RN
--- NOTE | 2020-04-14 12:22 | NUR ---
CARE TEAM INDICATED THAT THEY ARE STILL WORKING TO CORRECT PT'S SODIUM. ANTICIPATE POSSIBLE DC BACK TO OP CENTER SKILLED TOMORROW. CM TO FOLLOW INDICATED WITH DC PLANNING.
--- NOTE | 2020-04-14 15:51 | NUR ---
FAXED CLINICAL UPDATE TO [facility] SPOKE WITH MAKENZIE IN ADM SHE RECEIVED UPDATE AND THEY WILL READY FOR PT TO RETURN TOMORROW 04/15.
[2020-04-14 17:49] LABS: HCO3 22.2 mmol/L (22.0-26.0); PCO2 35.9 mmHg (35.0-45.0); pH 7.409 (7.360-7.450); sO2 94.5 % (92.0-98.0)
--- NOTE | 2020-04-14 19:05 | NUR ---
Assumed pt care at 7am.Pt in bed very lethargic.Assessment completed.vss but pt has labored breathing.O2 sat at 1lnc was in the upper 90's.Dr Meyers and Tan here,order noted.Tube feeding continues with h2o flushes.Around 1630,pt was congested and respiration was over 30 and labored.Oral suction done. Rt paged for nts.Pt son here around [address] meyers paged.He rounded on pt and stat abg and cxray done.Abg report called to Dr Meyers.Additional nts done.Bipap order noted and pt was placed on bipap.Pt will be transfer to cc unit later this evening.Nursing repair department supervisor notified.Pt son was at bs most of the time and said that he will stay till pt transfer.Will continue to monitor.
[2020-04-14 19:34] VITALS: BP 98/50
[2020-04-14 20:32] LABS: HCO3 21.4 mmol/L (22.0-26.0); PCO2 31.4 mmHg (35.0-45.0); PO2 100.9 mmHg (80.0-100.0); pH 7.451 (7.360-7.450); sO2 97.9 % (92.0-98.0)
[2020-04-15 00:30] VITALS: BP 125/56
[2020-04-15 04:49] LABS: CREATININE 1.6 mg/dL (0.6-1.0); POTASSIUM 3.9 mmol/L (3.5-5.1)
[2020-04-15 04:52] LABS: HEMATOCRIT 25.6 % (37.0-47.0); HEMOGLOBIN 8.2 gm/dL (12.0-15.0); MCH 30.1 pg (26.0-34.0); MCHC 31.9 g/dL (28.0-37.0); MCV 94.5 fL (80.0-100.0); RBC 2.71 mil/uL (4.20-5.00); RDW 19.3 % (10.5-14.5); WBC 5.6 thou/uL (4.0-11.0)
[2020-04-15 08:53] VITALS: BP 109/42
--- NOTE | 2020-04-15 10:41 | NUR ---
SPOKE WITH MAKENZIE IN ADM AT [facility] SHE WAS WANTING TO KNOW IF PT TUBE FEEDING FORMULA COULD BE CHANGED TO JEVITY, GLUCERNA, OSMOLYTE THE TUBE FEEDING ON NOW IS TOO EXPENSIVE MAYRA (DAVID) IS GOING TO SPEAK WITH ANIMAL THERAPIST TO SEE IF THIS CAN BE CHANGED.
[2020-04-15 11:58] VITALS: BP 126/53
--- NOTE | 2020-04-15 13:07 | NUR ---
[facility] questioned if can change tube feeding option. Xavier with dietary reports can use glucerna. Updated [facility].
[2020-04-15 15:42] VITALS: BP 158/62
[2020-04-15 18:25] LABS: URINE CREATININE-RANDOM* 26.1 mg/dL
[2020-04-15 18:28] LABS: PROT/CREAT RATIO 3.8; URINE CREATININE-RANDOM* 24.9 mg/dL; URINE PROTEIN-RANDOM* 95.1 mg/dL (<11.9)
[2020-04-15 20:13] VITALS: BP 166/63
--- NOTE | 2020-04-16 04:12 | NUR ---
RESTED QUIETLY MOST OF SHIFT. OPENS EYES TO PAINFUL STIMULI, LIGHTS ON AND SOMETIMES VERBAL STIMULI. TURNED EVERY 2-3 HOURS FOR COMFORT AND SKIN CARE. LEFT ARM WEEPING. APPEARS COMFORTABLE WITHOUT PAIN. TELEMETRY SHOWS SR WITH BURST OF SVT AT TIMES. TOLERATING TUBE FEEDING WITH MINIMAL RESIDUALS. SUCTION ORALY NEEDED, MOUTH CARE EVERY 4 HOURS AND PRN. WORKING ON GOALS AND PLAN OF CARE FOR NOC. NOT PROGRESSING AT THIS TIME. CONTINUE TO ASSJOYA WOODRUFF.
[2020-04-16 05:00] VITALS: BP 161/68
[2020-04-16 05:46] LABS: HEMATOCRIT 22.7 % (37.0-47.0); HEMOGLOBIN 7.3 gm/dL (12.0-15.0); MCH 30.3 pg (26.0-34.0); MCHC 32.2 g/dL (28.0-37.0); MCV 94.1 fL (80.0-100.0); RBC 2.41 mil/uL (4.20-5.00); RDW 18.8 % (10.5-14.5); WBC 3.5 thou/uL (4.0-11.0)
[2020-04-16 06:03] LABS: CALCIUM 7.9 mg/dL (8.5-10.1); CREATININE 1.7 mg/dL (0.6-1.0); MAGNESIUM 2.2 mg/dL (1.8-2.4); PHOSPHORUS 2.6 mg/dL (2.5-4.9); POTASSIUM 3.7 mmol/L (3.5-5.1)
[2020-04-16 08:00] VITALS: BP 116/64
[2020-04-16 11:27] VITALS: BP 117/66
[2020-04-16 16:00] VITALS: BP 107/48
[2020-04-16 19:40] VITALS: BP 127/48
[2020-04-17 04:30] VITALS: BP 129/46
--- NOTE | 2020-04-17 06:13 | NUR ---
RESTED QUIETLY MOST OF SHIFT. OPENS EYES TO LIGHT STIMULUS AND MOVEMENT. NO VERBAL. STATUS UNCHANGED. WORKING ON GOALS AND PLAN OF CARE FOR NOC. AWAITING MEETING WITH SON AND DR THIS AM FOR CODE STATUS CHANGE. REPOSITIONED EVERY 2 HOURS FOR COMFORT AND SKIN CARE. CONTINUE TO GREG WOODRUFF.
[2020-04-17 07:30] VITALS: BP 136/46
[2020-04-17 11:35] VITALS: BP 132/51
[2020-04-17 12:07] LABS: HEMATOCRIT 23.2 % (37.0-47.0); HEMOGLOBIN 7.5 gm/dL (12.0-15.0); MCH 30.3 pg (26.0-34.0); MCHC 32.2 g/dL (28.0-37.0); MCV 94.2 fL (80.0-100.0); RBC 2.46 mil/uL (4.20-5.00); RDW 18.8 % (10.5-14.5); WBC 3.1 thou/uL (4.0-11.0)
[2020-04-17 12:37] LABS: ALBUMIN 1.4 g/dL (3.4-5.0); CALCIUM 8.6 mg/dL (8.5-10.1); CREATININE 1.7 mg/dL (0.6-1.0); PHOSPHORUS 1.9 mg/dL (2.5-4.9); POTASSIUM 3.6 mmol/L (3.5-5.1)
--- NOTE | 2020-04-17 14:28 | NUR ---
08:00-CONTINUES TO REMAIN NEAR HER BASELINE OF NO RESPONSE OTHER THEN OPENING HER EYES TO LIGHT ON THEM. REPOSOTIONED AND BUTTOCKS IS RED, OFFLOADED HER HEELS BILATERALLY. BS ARE RUNNING HIGHER PAST 12 HOURS WILL MONITOR ONLY CHANGE WAS IV D5 WAS ADDED? STACKED BREATHIGN PATTERN BUT SATURATIONS REMAIN MID 90'S. DOES COUGH WITH RATLES BUT NO PRODUCTION OBSERVED OR CLEARED. NSR ON MONITOR.
--- NOTE | 2020-04-17 14:31 | NUR ---
PT.'S SON (RAVI), IS COMING UP AT 10;30 TO CHANGE CODE STATUS TO A DNR THIS AM AND CALLED ME ENROUTE FOR SUCH. NSR MONITOR NO SIGN'S OF DISTRESS, TOLERATING FEEDINGS WITH MO RESIDUALS. FREE WATER Q3 HOURS PERFORMED ORDERED. BS CAME DOWN TO 264 LAST READING.
--- NOTE | 2020-04-17 14:33 | NUR ---
TURNED PT. TO RIGHT SIDE OFFLOADED HER HEELS. CODE STATUS CHANGED COMFORT CARE IS STILL BEING DISCUSSED AND NOT DECIDED ON YET. TOLERATING FEEDS, NO RESIDUALS.
--- NOTE | 2020-04-17 14:51 | NUR ---
Case discussed with the care team. The attending met with the pt's son this morning to discuss code status and plan of care. DNR in place with an outside the hospital DNR form on the chart. Family open to palliative care consult and possible dc to home with hospice vs back to the care home. Palliative care consult pending. Will follow.
[2020-04-17 15:30] VITALS: BP 112/60
--- NOTE | 2020-04-17 16:26 | NUR ---
FAXED CLINICAL UPDATE TO [facility] SPOKE WITH MAKENZIE IN ADM SHE RECEIVED UPDATE. DP TO FOLLOW.
[2020-04-17 20:00] VITALS: BP 115/58
--- NOTE | 2020-04-18 04:45 | NUR ---
Assumed pt care at 1900. Pt is non-responsive. Pt is stable. Assessment completed and documented. Unable to verbalize need. Scheduled meds administered to pt. No acute events overnight. Repositioning. Continue to monitor, no further needs at this time.
[2020-04-18 08:37] VITALS: BP 165/63
[2020-04-18 11:36] VITALS: BP 142/48
[2020-04-18 13:29] LABS: HEMATOCRIT 23.4 % (37.0-47.0); HEMOGLOBIN 7.4 gm/dL (12.0-15.0); MCHC 31.7 g/dL (28.0-37.0); MCV 94.6 fL (80.0-100.0); RBC 2.47 mil/uL (4.20-5.00); RDW 19.4 % (10.5-14.5); WBC 3.5 thou/uL (4.0-11.0)
[2020-04-18 13:39] LABS: CALCIUM 8.9 mg/dL (8.5-10.1); CREATININE 1.7 mg/dL (0.6-1.0); MAGNESIUM 2.1 mg/dL (1.8-2.4); POTASSIUM 3.7 mmol/L (3.5-5.1)
[2020-04-18 15:28] VITALS: BP 116/31
--- NOTE | 2020-04-18 16:58 | NUR ---
ASSESSMENT CHARTED - PT NON RESPONSIVE. MOUTH CARE GIVEN. PATIENT TURNED. DRESSING TO ABDO CHANGED ORDERED. SAMANTHA TUBE FEEDING - FLUSH Q 6 HOUR PEG TUBE - PEG TUBE SITE CARE GIVEN. SON INTO VISIT. APPEARS TO BE RESTIGN COMFORTABLY.
[2020-04-18 19:30] VITALS: BP 117/52
[2020-04-19 04:00] VITALS: BP 125/48
[2020-04-19 07:12] LABS: HEMATOCRIT 21.6 % (37.0-47.0); MCH 30.6 pg (26.0-34.0); MCHC 32.4 g/dL (28.0-37.0); MCV 94.6 fL (80.0-100.0); RBC 2.29 mil/uL (4.20-5.00); RDW 18.4 % (10.5-14.5); WBC 2.7 thou/uL (4.0-11.0)
[2020-04-19 07:24] LABS: CALCIUM 8.5 mg/dL (8.5-10.1); CREATININE 1.8 mg/dL (0.6-1.0); POTASSIUM 3.8 mmol/L (3.5-5.1)
[2020-04-19 07:54] VITALS: BP 147/46
[2020-04-19 11:31] VITALS: BP 141/53
--- NOTE | 2020-04-19 12:05 | NUR ---
PT ASSMENT AND REASSMENTS CHARTED, REPOSITIONED NEEDED, TF INFUSING WITH OUT ANY RESIDUAL, INCON'T OF STOOL X1, FREDERICK WITH URINE OUTPUT, FREQUENT MOUTH CARE GIVEN, PHYSCIAN ROUNDED ON PT THIS AM AND WANTED TO SEE LAB WORK BEFORE CHANGING SOME MED ORDERS, BG ELEVATD WITH D5 BOLUSES AND IV INSULIN GIVEN NEEDED, REPORT GIVEN TO NET SHIFT TO CON'T WITH PPOC.
[2020-04-19 15:03] VITALS: BP 141/51
--- NOTE | 2020-04-19 18:00 | NUR ---
ASSESSMENT CHARTED - MEDS PER JUL - PT TURNED IN BED AND MOUTH CARE GIVEN Q 3 HOURS. PATIENT WITH BREAKSOWN ON BUUTOCKS. DRESSING TO ABDO REMAINS INSITU. PT REMAINS NON RESPONSIVE. SON INTO VISIT FOR A SHORT TIME THIS AFTERNOON. PT INCONT OF STOOL. PT TOLERATIING PEG TUBE FEEDINS - MEDS CRUSHED AND GIVEN VIA TUBE. ACCUCHECKS CHARTED . PT APPEARS TO BE RESTING AT THE PRESENT TIME.
--- NOTE | 2020-04-19 19:21 | NUR ---
SCHEDULED INSULIN HELD AT 18OO DUE TO NO FURTHER IV D5 BEING GIVEN - COVERED PER SSI.
[2020-04-19 20:23] VITALS: BP 130/56
[2020-04-20 05:03] VITALS: BP 144/58
[2020-04-20 05:37] LABS: HEMATOCRIT 21.4 % (37.0-47.0); MCH 30.7 pg (26.0-34.0); MCHC 32.9 g/dL (28.0-37.0); MCV 93.2 fL (80.0-100.0); RBC 2.3 mil/uL (4.20-5.00); RDW 18.5 % (10.5-14.5); WBC 3.5 thou/uL (4.0-11.0)
[2020-04-20 05:47] LABS: ALBUMIN 1.2 g/dL (3.4-5.0); CALCIUM 8.1 mg/dL (8.5-10.1); CREATININE 1.7 mg/dL (0.6-1.0); PHOSPHORUS 2.6 mg/dL (2.5-4.9); POTASSIUM 4.2 mmol/L (3.5-5.1)
--- NOTE | 2020-04-20 07:08 | NUR ---
WILL CLOSE EYES TIGHTLY WHEN EYEDROPS GIVEN,OTHERWISE PATIENT UNRESPONSIVE.PT TURN Q2H.GENERALIZED EDEMA WITH WEEPING.ON GLUCERNA 1.2 INFUSING THRU PEG TUBE.MONITOR SHOWS SR.POC CONTINUED.
[2020-04-20 08:00] VITALS: BP 142/59
--- NOTE | 2020-04-20 11:01 | NUR ---
WOUND CONSULT; WOUNDS ARE IMPROVING. THE ABDOMENAL DRESSING HAS NO DRAINAGE X 2DAYS. D/C WOUND CARE TO THIS AREA. THE BUTTOCKS AREAS HAVE IMPROVED GREATLY.THE EDEMA TO THE UPPER EXTREMITIES HAVE IMPROVED SOME. THE PATIENT IS BREATHING BETTER. RECOMMENDATION; -CHANGE ABDOMENAL DRESSING TO PRN ONLY -CONTINUE ALL OTHER WOUND CARE ORDERS DISCUSSED WITH HARRISON
[2020-04-20 13:08] VITALS: BP 143/64
--- NOTE | 2020-04-20 13:56 | NUR ---
FAXED CLINICAL UPDATE TO [facility] SPOKE WITH MAKENZIE ON ADM SHE RECEIVED UPDATE,
--- NOTE | 2020-04-20 14:50 | NUR ---
THE PATIENT CONTINUES TO BE UNRESPONSIVE AND IS NOT APPROPRIATE FOR PO TRIALS AT THIS TIME. ST RECOMMENDS PATIENT REMAIN NPO AND HOLD DYSPHAGIA THERAPY ULESS THERE IS A CHANGE IN STATUS. WILL AWAIT NEW ORDERS
[2020-04-20 16:00] VITALS: BP 129/43
[2020-04-20 16:50] VITALS: BP 129/43
--- NOTE | 2020-04-20 19:39 | NUR ---
patient is not progressing towards plan of care. patient continues to be nonresponsive and only responding to pain. family member nichol came by today to visit with patient. patient has adequate urine output. lasix given. plan to continue care.
[2020-04-20 20:47] VITALS: BP 142/44
--- NOTE | 2020-04-21 05:53 | NUR ---
Assumed pt care at 1900. Pt is non-responsive. Scheduled meds administered. Pt was waiting to transition from hopsital to home with hopsice. At about 0428 it was noted that the patient had went into asystole on the case monitor. The primary RN went into the room immediately with a few other nurses and pt patient was assessment. Pt was pronounced at 0430 (time of ) and this was confirmed by two RNs. Nurse pracitioner, warehouse handler and family were all notified. Family visited with patient. Consulting physicians were also notified and messages left with notification.
== END 2020-04-21 04:30 | DRG 870 ==
LOC: ER 15:43 → ICU 18:05 → 2N 18:05 → EROBS 18:05 → 4W 18:05 → ICU 03-14 01:32 → 4W 04-06 17:03 → 2N 04-14 22:53
PROVIDERS: Emergency Medicine; Hospitalist; Internal Medicine Nephrology; Internal Medicine Pulmonary Disease; Pediatrics; Specialist; ADMIT Internal Medicine; ATTEND Internal Medicine
PROC: 5A1955Z Respiratory Ventilation, Greater than 96 Consecutive Hours (ICD-10-PCS; 2020-03-13)
PROC: 0BH17EZ Insertion of Endotracheal Airway into Trachea, Via Natural or Artificial Opening (ICD-10-PCS; 2020-03-13)
PROC: 02HV33Z Insertion of Infusion Device into Superior Vena Cava, Percutaneous Approach (ICD-10-PCS; 2020-03-13)
PROC: XW033E5 Introduction of Remdesivir Anti-infective into Peripheral Vein, Percutaneous Approach, New Technology Group 5 (ICD-10-PCS; 2020-03-16)
PROC: XW13325 Transfusion of Convalescent Plasma (Nonautologous) into Peripheral Vein, Percutaneous Approach, New Technology Group 5 (ICD-10-PCS; 2020-03-17)
PROC: 0W3P8ZZ Control Bleeding in Gastrointestinal Tract, Via Natural or Artificial Opening Endoscopic (ICD-10-PCS; principal; 2020-03-26)
PROC: 30233N1 Transfusion of Nonautologous Red Blood Cells into Peripheral Vein, Percutaneous Approach (ICD-10-PCS; principal; 2020-03-26)
PROC: 5A0935A Assistance with Respiratory Ventilation, Less than 24 Consecutive Hours, High Flow/Velocity Cannula (ICD-10-PCS; 2020-04-04)
PROC: 5A0935A Assistance with Respiratory Ventilation, Less than 24 Consecutive Hours, High Flow/Velocity Cannula (ICD-10-PCS; 2020-04-05)
PROC: 5A0935A Assistance with Respiratory Ventilation, Less than 24 Consecutive Hours, High Flow/Velocity Cannula (ICD-10-PCS; 2020-04-06)
PROC: 0DH63UZ Insertion of Feeding Device into Stomach, Percutaneous Approach (ICD-10-PCS; 2020-04-09)
PROC: 5A09357 Assistance with Respiratory Ventilation, Less than 24 Consecutive Hours, Continuous Positive Airway Pressure (ICD-10-PCS; 2020-04-14)
DX: A41.89 Other specified sepsis (principal); U07.1 COVID-19; J12.89 Other viral pneumonia; J96.01 Acute respiratory failure with hypoxia; E43 Unspecified severe protein-calorie malnutrition; J15.212 Pneumonia due to Methicillin resistant Staphylococcus aureus; K25.4 Chronic or unspecified gastric ulcer with hemorrhage; G92 Toxic encephalopathy; K29.71 Gastritis, unspecified, with bleeding; N17.9 Acute kidney failure, unspecified; I69.351 Hemiplegia and hemiparesis following cerebral infarction affecting right dominant side; I50.32 Chronic diastolic (congestive) heart failure; R04.2 Hemoptysis; I13.0 Hypertensive heart and chronic kidney disease with heart failure and stage 1 through stage 4 chronic kidney disease, or unspecified chronic kidney disease; D62 Acute posthemorrhagic anemia; K56.7 Ileus, unspecified; E87.0 Hyperosmolality and hypernatremia; E03.9 Hypothyroidism, unspecified; E78.5 Hyperlipidemia, unspecified; E11.22 Type 2 diabetes mellitus with diabetic chronic kidney disease; E87.70 Fluid overload, unspecified; N18.2 Chronic kidney disease, stage 2 (mild); D64.9 Anemia, unspecified; R14.0 Abdominal distension (gaseous); E66.9 Obesity, unspecified; A41.02 Sepsis due to Methicillin resistant Staphylococcus aureus; E11.21 Type 2 diabetes mellitus with diabetic nephropathy; I95.9 Hypotension, unspecified; Z66 Do not resuscitate; Z68.36 Body mass index [BMI] 36.0-36.9, adult; Z79.4 Long term (current) use of insulin; Z79.01 Long term (current) use of anticoagulants; Z79.899 Other long term (current) drug therapy; Z91.011 Allergy to milk products
CPT/HCPCS: 10045; 10047; 10078; 10081; 62110; 62900; 70005; 85076